=== PATIENT | female | born 1995 | race Caucasian/White ===

== ENCOUNTER 2017-02-21 22:19 | Inpatient (IN) | payer MEDICAID, OTHER ==
[~2017-02-21] VITALS: Ht 165.1 cm; Wt 100.7 kg
[~2017-02-21 22:19] MED LIST: BENZ1TAB10 PO; HALO10 PO; PALI234D IM; PALI3 PO
[2017-02-21 22:52] LABS: BASOPHILS # (AUTO) 0.08 K/uL (0.00-0.20); BASOPHILS % (AUTO) 0.7 % (0.0-2.0); EOSINOPHILS # (AUTO) 0.11 K/uL (0.00-0.70); EOSINOPHILS % (AUTO) 0.96 % (1.0-6.0); HEMATOCRIT 38.1 % (36-46); HEMOGLOBIN 12.7 g/dL (12.0-16.0); LYMPHOCYTES # (AUTO) 2.7 K/uL (1.0-4.8); LYMPHOCYTES % (AUTO) 23.8 % (22.0-44.0); MEAN CORPUSCULAR HGB CONC 33.3 G/dL (31.0-37.0); MEAN CORPUSCULAR VOLUME 78 fL (80-100); MONOCYTES # (AUTO) 0.7 K/uL (0.1-1.0); MONOCYTES % (AUTO) 5.9 % (2.0-9.0); NEUTROPHILS # (AUTO) 7.9 K/uL (1.8-7.7); NEUTROPHILS % (AUTO) 68.7 % (40.0-70.0); PLATELET COUNT (AUTO) 366 K/uL (150-450); RED BLOOD CELL COUNT(AUTO) 4.88 MIL/uL (4.00-5.20); RED CELL DISTRIBUTION WIDTH 13.9 % (11.5-14.5); WHITE BLOOD COUNT (AUTO) 11.5 K/uL (4.5-11.0)
[2017-02-21 23:00] LABS: ANION GAP 10 mmol/L (8-16); CALCIUM, TOTAL 9.1 mg/dL (8.8-10.5); CARBON DIOXIDE 27 mmol/L (22-29); CHLORIDE 105 mmol/L (98-107); CREATININE 1.04 mg/dL (0.60-1.30); GLOMERULAR FILTR. RATE CALC > 60 mL/min (>60); SODIUM SERUM 142 mmol/L (136-145); UREA NITROGEN, BLOOD 11 mg/dL (7-18)
[2017-02-21 23:06] LABS: ALANINE AMINOTRANSFERASE 21 U/L (12-78); ALBUMIN 3.8 g/dL (3.4-5.0); ASPARTATE AMINOTRANSFERASE 12 U/L (15-37); BILIRUBIN,TOTAL 0.3 mg/dL (0.1-1.0)
[2017-02-21] MEDS ORDERED: DiphenhydrAMINE HCL 50 MG/ML VIAL IM ONE (23:30)
[2017-02-21] MEDS ORDERED: LORazepam 2 MG/ML VIAL IM ONE (23:30)
[2017-02-22 01:22] VITALS: BP 126/82
[2017-02-22 03:33] VITALS: BP 135/85
[2017-02-22] MEDS: ZOLPIDEM TARTRATE 10 MG TABLET PO PRN ×2 (03:39→21:06)
[2017-02-22] MEDS ORDERED: PNEUMOCOCCAL VACCINE POLYVALENT 0.5 ML VIAL [PPSV23] IM ONE (04:45)
[2017-02-22] MEDS ORDERED: PETROLATUM,WHITE 71 GM JELLY TP PRN (08:30)
[2017-02-22] MEDS ORDERED: ACETAMINOPHEN 325 MG TABLET PO PRN (08:30)
[2017-02-22] MEDS ORDERED: CloNIDine HCL 0.1 MG TABLET PO PRN (08:30)
[2017-02-22] MEDS ORDERED: ONDANSETRON HCL 4 MG TABLET PO PRN (08:30)
[2017-02-22] MEDS ORDERED: ALBUTEROL SULFATE HFA 90 MCG/PUFF 8 GM INHALER IH PRN (08:30)
[2017-02-22] MEDS ORDERED: MAG HYDROX/AL HYDROX/SIMETH ES 30 ML SUSPENSION UDCUP PO PRN (08:30)
[2017-02-22] MEDS ORDERED: BACITRACIN 28.4 GM OINTMENT TP PRN (08:30)
[2017-02-22] MEDS ORDERED: LOPERAMIDE HCL 2 MG CAPSULE PO PRN (08:30)
[2017-02-22] MEDS: CHOLECALCIFEROL (VIT D3) 1,000 UNITS TABLET PO SCH (09:24)
[2017-02-22] MEDS: BENZTROPINE MESYLATE 1 MG TABLET PO SCH ×2 (09:25→16:09)
[2017-02-22] MEDS: LORazepam 2 MG TABLET PO PRN ×3 (11:57→21:40)
[2017-02-22] MEDS ORDERED: PALIPERIDONE PALMITATE 234 MG/1.5 ML SYRINGE IM SCH (12:00)
[2017-02-22 16:00] VITALS: BP 135/83
[2017-02-22 17:30] VITALS: BP 128/70
[2017-02-22] MEDS: PALIPERIDONE 3 MG ER TABLET PO SCH (20:00)
[2017-02-22] MEDS: HALOPERIDOL 5 MG TABLET PO SCH (21:00)
[2017-02-23 00:02] VITALS: BP 131/74
[2017-02-23] MEDS: CHOLECALCIFEROL (VIT D3) 1,000 UNITS TABLET PO SCH (08:42)
[2017-02-23] MEDS: BENZTROPINE MESYLATE 1 MG TABLET PO SCH ×2 (08:42→16:45)
[2017-02-23 08:46] VITALS: BP 100/58
[2017-02-23 16:08] VITALS: BP 136/81
[2017-02-23] MEDS: LORazepam 2 MG TABLET PO PRN ×2 (16:45→20:54)
[2017-02-23] MEDS: ZOLPIDEM TARTRATE 10 MG TABLET PO PRN (20:31)
[2017-02-23] MEDS: PALIPERIDONE 3 MG ER TABLET PO SCH (20:31)
[2017-02-23] MEDS: HALOPERIDOL 5 MG TABLET PO SCH (20:32)
[2017-02-24] MEDS: BENZOCAINE/MENTHOL LOZENGE MM PRN (04:40)
[2017-02-24 06:25] VITALS: BP 117/62
[2017-02-24] MEDS ORDERED: PALIPERIDONE PALMITATE 234 MG/1.5 ML SYRINGE IM SCH (09:00)
[2017-02-24] MEDS: CHOLECALCIFEROL (VIT D3) 1,000 UNITS TABLET PO SCH (09:52)
[2017-02-24] MEDS: BENZTROPINE MESYLATE 1 MG TABLET PO SCH ×2 (09:52→16:45)
[2017-02-24] MEDS: LORazepam 2 MG TABLET PO PRN ×3 (09:52→21:06)
[2017-02-24 10:05] VITALS: BP 118/64
[2017-02-24 16:15] VITALS: BP 131/85
[2017-02-24] MEDS: ZOLPIDEM TARTRATE 10 MG TABLET PO PRN (20:11)
[2017-02-24] MEDS: PALIPERIDONE 3 MG ER TABLET PO SCH (20:11)
[2017-02-24] MEDS: HALOPERIDOL 5 MG TABLET PO SCH (21:00)
[2017-02-25 01:37] VITALS: BP 111/69
[2017-02-25] MEDS: LORazepam 2 MG TABLET PO PRN ×2 (01:39→16:33)
[2017-02-25] MEDS: CHOLECALCIFEROL (VIT D3) 1,000 UNITS TABLET PO SCH (08:09)
[2017-02-25] MEDS: BENZTROPINE MESYLATE 1 MG TABLET PO SCH ×2 (08:09→16:33)
[2017-02-25] MEDS: BENZOCAINE/MENTHOL LOZENGE MM PRN (08:09)
[2017-02-25 08:15] VITALS: BP 133/66
[2017-02-25 16:04] VITALS: BP 135/77
[2017-02-25] MEDS: ZOLPIDEM TARTRATE 10 MG TABLET PO PRN (20:00)
[2017-02-25] MEDS: PALIPERIDONE 3 MG ER TABLET PO SCH (20:00)
[2017-02-25] MEDS: HALOPERIDOL 5 MG TABLET PO SCH (21:00)
[2017-02-26 02:35] VITALS: BP 128/86
[2017-02-26] MEDS: BENZOCAINE/MENTHOL LOZENGE MM PRN (02:38)
[2017-02-26 08:04] VITALS: BP 132/82
[2017-02-26] MEDS: CHOLECALCIFEROL (VIT D3) 1,000 UNITS TABLET PO SCH (08:13)
[2017-02-26] MEDS: BENZTROPINE MESYLATE 1 MG TABLET PO SCH ×2 (08:13→16:08)
[2017-02-26] MEDS: LORazepam 2 MG TABLET PO PRN ×3 (08:13→19:54)
[2017-02-26] MEDS: HALOPERIDOL 5 MG TABLET PO PRN (08:14)
[2017-02-26 16:08] VITALS: BP 131/82
[2017-02-26] MEDS: PALIPERIDONE 3 MG ER TABLET PO SCH (20:22)
[2017-02-26] MEDS: ZOLPIDEM TARTRATE 10 MG TABLET PO PRN (20:27)
[2017-02-26] MEDS: HALOPERIDOL 5 MG TABLET PO SCH (20:29)
[2017-02-27 02:12] VITALS: BP 114/71
[2017-02-27 08:38] VITALS: BP 122/78
[2017-02-27] MEDS: BENZTROPINE MESYLATE 1 MG TABLET PO SCH ×2 (09:21→16:01)
[2017-02-27] MEDS: CHOLECALCIFEROL (VIT D3) 1,000 UNITS TABLET PO SCH (09:21)
[2017-02-27] MEDS: LORazepam 2 MG TABLET PO PRN ×3 (10:43→20:08)
[2017-02-27 16:36] VITALS: BP 128/90
[2017-02-27] MEDS: PALIPERIDONE 3 MG ER TABLET PO SCH (20:08)
[2017-02-27 20:20] VITALS: BP 113/69
[2017-02-27] MEDS: IBUPROFEN 600 MG TABLET PO PRN (20:20)
[2017-02-27] MEDS: HALOPERIDOL 5 MG TABLET PO SCH (21:00)
[2017-02-27 21:06] VITALS: BP 119/70
[2017-02-28] MEDS: BENZTROPINE MESYLATE 1 MG TABLET PO SCH ×2 (08:15→16:27)
[2017-02-28] MEDS: CHOLECALCIFEROL (VIT D3) 1,000 UNITS TABLET PO SCH (08:15)
[2017-02-28] MEDS: LORazepam 2 MG TABLET PO PRN ×2 (14:25→18:50)
[2017-02-28 16:08] VITALS: BP 115/62
[2017-02-28] MEDS: MAGNESIUM HYDROXIDE SUSPENSION 30 ML UDCUP PO PRN (17:33)
[2017-02-28] MEDS: PALIPERIDONE 3 MG ER TABLET PO SCH (20:05)
[2017-02-28] MEDS: HALOPERIDOL 5 MG TABLET PO SCH (21:00)
[2017-02-28] MEDS: ZOLPIDEM TARTRATE 10 MG TABLET PO PRN (21:01)
[2017-02-28] MEDS: BENZOCAINE/MENTHOL LOZENGE MM PRN (22:16)
[2017-03-01] MEDS: LORazepam 2 MG TABLET PO PRN ×4 (03:00→21:40)
[2017-03-01 03:01] VITALS: BP 126/64
[2017-03-01] MEDS: CHOLECALCIFEROL (VIT D3) 1,000 UNITS TABLET PO SCH (08:21)
[2017-03-01] MEDS: BENZTROPINE MESYLATE 1 MG TABLET PO SCH ×2 (08:21→15:40)
[2017-03-01 16:00] VITALS: BP 137/73
[2017-03-01] MEDS: HALOPERIDOL 5 MG TABLET PO SCH (20:31)
[2017-03-01] MEDS: PALIPERIDONE 3 MG ER TABLET PO SCH (20:32)
[2017-03-01] MEDS: ZOLPIDEM TARTRATE 10 MG TABLET PO PRN (20:32)
[2017-03-02 04:28] VITALS: BP 129/84
[2017-03-02] MEDS: CHOLECALCIFEROL (VIT D3) 1,000 UNITS TABLET PO SCH (08:59)
[2017-03-02] MEDS: BENZTROPINE MESYLATE 1 MG TABLET PO SCH ×2 (08:59→16:27)
[2017-03-02] MEDS: LORazepam 2 MG TABLET PO PRN ×3 (12:00→21:24)
[2017-03-02] MEDS: MAGNESIUM HYDROXIDE SUSPENSION 30 ML UDCUP PO PRN (13:22)
[2017-03-02 16:04] VITALS: BP 144/85
[2017-03-02] MEDS: PALIPERIDONE 3 MG ER TABLET PO SCH (20:18)
[2017-03-02] MEDS: ZOLPIDEM TARTRATE 10 MG TABLET PO PRN (20:50)
[2017-03-02] MEDS: HALOPERIDOL 5 MG TABLET PO SCH (21:00)
[2017-03-03 00:38] VITALS: BP 132/81
[2017-03-03] MEDS: IBUPROFEN 600 MG TABLET PO PRN (00:42)
[2017-03-03 05:50] VITALS: BP 111/83
[2017-03-03] MEDS: LORazepam 2 MG TABLET PO PRN ×4 (05:52→16:44)
[2017-03-03] MEDS: CHOLECALCIFEROL (VIT D3) 1,000 UNITS TABLET PO SCH (08:12)
[2017-03-03] MEDS: BENZTROPINE MESYLATE 1 MG TABLET PO SCH ×2 (08:12→16:44)
[2017-03-03] MEDS: NICOTINE 21 MG/24 HOUR PATCH TD SCH (12:32)
[2017-03-03 16:13] VITALS: BP 124/87
[2017-03-03] MEDS: PALIPERIDONE 3 MG ER TABLET PO SCH (20:05)
[2017-03-03] MEDS: BENZOCAINE/MENTHOL LOZENGE MM PRN (20:21)
[2017-03-03] MEDS: HALOPERIDOL 5 MG TABLET PO SCH (21:00)
[2017-03-03] MEDS: ZOLPIDEM TARTRATE 10 MG TABLET PO PRN (21:04)
[2017-03-04 01:50] VITALS: BP 139/79
[2017-03-04 08:51] VITALS: BP 121/68
[2017-03-04] MEDS: CHOLECALCIFEROL (VIT D3) 1,000 UNITS TABLET PO SCH (09:51)
[2017-03-04] MEDS: BENZTROPINE MESYLATE 1 MG TABLET PO SCH ×2 (09:51→16:03)
[2017-03-04] MEDS: NICOTINE 21 MG/24 HOUR PATCH TD SCH (09:53)
[2017-03-04] MEDS: LORazepam 2 MG TABLET PO PRN ×2 (12:39→16:45)
[2017-03-04 16:00] VITALS: BP 122/79
[2017-03-04] MEDS: HALOPERIDOL 5 MG TABLET PO PRN (16:03)
[2017-03-04] MEDS: MAGNESIUM HYDROXIDE SUSPENSION 30 ML UDCUP PO PRN (16:54)
[2017-03-04] MEDS: HALOPERIDOL 5 MG TABLET PO SCH (20:17)
[2017-03-04] MEDS: PALIPERIDONE 3 MG ER TABLET PO SCH (20:17)
[2017-03-04] MEDS: ZOLPIDEM TARTRATE 10 MG TABLET PO PRN (20:58)
[2017-03-05 04:14] VITALS: BP 123/77
[2017-03-05] MEDS: IBUPROFEN 600 MG TABLET PO PRN (05:13)
[2017-03-05 08:05] VITALS: BP 132/76
[2017-03-05] MEDS: CHOLECALCIFEROL (VIT D3) 1,000 UNITS TABLET PO SCH (08:19)
[2017-03-05] MEDS: BENZTROPINE MESYLATE 1 MG TABLET PO SCH (08:19)
[2017-03-05] MEDS: NICOTINE 21 MG/24 HOUR PATCH TD SCH (08:24)
[2017-03-05] MEDS ORDERED: ALBU8HFA IH (10:38)
[2017-03-05] MEDS ORDERED: VITAD1000 PO (10:38)
[2017-03-23] MEDS ORDERED: PALIPERIDONE PALMITATE 234 MG/1.5 ML SYRINGE IM SCH (09:00)
== END 2017-03-05 15:23 | disposition home or self-care (01) | DRG 750 ==
LOC: EMS 22:20 → B3A 02-22 01:00
PROVIDERS: ADMIT Psychiatry & Neurology Psychiatry; ATTEND Psychiatry & Neurology Psychiatry
DX: F20.0 Paranoid schizophrenia (principal); R45.851 Suicidal ideations; E55.9 Vitamin D deficiency, unspecified; F17.210 Nicotine dependence, cigarettes, uncomplicated; Z71.6 Tobacco abuse counseling; G47.00 Insomnia, unspecified; K59.00 Constipation, unspecified; F17.200 Nicotine dependence, unspecified, uncomplicated; F15.10 Other stimulant abuse, uncomplicated; F12.90 Cannabis use, unspecified, uncomplicated; E66.9 Obesity, unspecified; Z88.8 Allergy status to other drugs, medicaments and biological substances; Z79.899 Other long term (current) drug therapy; Z23 Encounter for immunization; Z68.36 Body mass index [BMI] 36.0-36.9, adult; Z71.51 Drug abuse counseling and surveillance of drug abuser
CPT/HCPCS: 96372; 99285; G0480; J1200; J2060

== ENCOUNTER 2017-07-20 15:30 | Emergency (ER) | payer MEDICAID, OTHER ==
[~2017-07-20] VITALS: Ht 165.1 cm; Wt 102.0 kg
[~2017-07-20 15:30] MED LIST changes: +ALBU8HFA IH; -HALO10 PO; -PALI3 PO; +VITAD1000 PO
[2017-07-20 15:58] LABS: BASOPHILS # (AUTO) 0.06 K/uL (0.00-0.20); BASOPHILS % (AUTO) 0.5 % (0.0-2.0); EOSINOPHILS # (AUTO) 0.06 K/uL (0.00-0.70); EOSINOPHILS % (AUTO) 0.57 % (1.0-6.0); HEMATOCRIT 36.1 % (36-46); HEMOGLOBIN 12.1 g/dL (12.0-16.0); LYMPHOCYTES # (AUTO) 2.2 K/uL (1.0-4.8); LYMPHOCYTES % (AUTO) 19.6 % (22.0-44.0); MEAN CORPUSCULAR HEMOGLOBIN 25.1 pg (26.0-34.0); MEAN CORPUSCULAR HGB CONC 33.7 G/dL (31.0-37.0); MEAN CORPUSCULAR VOLUME 74 fL (80-100); MONOCYTES # (AUTO) 0.5 K/uL (0.1-1.0); MONOCYTES % (AUTO) 4.6 % (2.0-9.0); NEUTROPHILS # (AUTO) 8.4 K/uL (1.8-7.7); NEUTROPHILS % (AUTO) 74.8 % (40.0-70.0); PLATELET COUNT (AUTO) 356 K/uL (150-450); RED BLOOD CELL COUNT(AUTO) 4.84 MIL/uL (4.00-5.20); RED CELL DISTRIBUTION WIDTH 15.3 % (11.5-14.5); WHITE BLOOD COUNT (AUTO) 11.3 K/uL (4.5-11.0)
[2017-07-20 16:21] LABS: RBC MORPHOLOGY COMMENT NORMAL RBC MORPH
[2017-07-20 17:02] LABS: ANION GAP 14 mmol/L (8-16); CALCIUM, TOTAL 9.8 mg/dL (8.8-10.5); CARBON DIOXIDE 25 mmol/L (22-29); CHLORIDE 102 mmol/L (98-107); CREATININE 0.75 mg/dL (0.60-1.30); GLOMERULAR FILTR. RATE CALC > 60 mL/min (>60); POTASSIUM 3.7 mmol/L (3.5-5.1); SODIUM SERUM 141 mmol/L (136-145); UREA NITROGEN, BLOOD 9 mg/dL (7-18)
[2017-07-20 17:10] LABS: ALANINE AMINOTRANSFERASE 34 U/L (12-78); ALBUMIN 3.9 g/dL (3.4-5.0); ASPARTATE AMINOTRANSFERASE 25 U/L (15-37); BILIRUBIN,TOTAL 0.5 mg/dL (0.1-1.0); TOTAL PROTEIN, SERUM 8.3 g/dL (6.4-8.2)
[2017-07-20 17:59] VITALS: BP 119/81
[2017-07-20] MEDS ORDERED: LORazepam 2 MG TABLET PO ONE (18:00)
== END 2017-07-20 18:46 | disposition home or self-care (01) ==
LOC: EMS 15:34
DX: F41.9 Anxiety disorder, unspecified (principal); F20.9 Schizophrenia, unspecified; F17.210 Nicotine dependence, cigarettes, uncomplicated; F12.10 Cannabis abuse, uncomplicated; B19.20 Unspecified viral hepatitis C without hepatic coma
CPT/HCPCS: 36415; 80053; 80307; 85025; 99284; G0480

== ENCOUNTER 2017-12-16 21:21 | Emergency (ER) | payer OTHER ==
[~2017-12-16] VITALS: Ht 170.2 cm; Wt 118.2 kg
[2017-12-16 22:02] LABS: BASOPHILS % (AUTO) 0.3 % (0.0-2.0); EOSINOPHILS % (AUTO) 0.6 % (1.0-6.0); HEMATOCRIT 38.9 % (36-46); LYMPHOCYTES # (AUTO) 2.5 K/uL (1.0-4.8); LYMPHOCYTES % (AUTO) 19.7 % (22.0-44.0); MEAN CORPUSCULAR HGB CONC 33.4 G/dL (31.0-37.0); MEAN CORPUSCULAR VOLUME 75 fL (80-100); MONOCYTES # (AUTO) 0.6 K/uL (0.1-1.0); MONOCYTES % (AUTO) 4.4 % (2.0-9.0); NEUTROPHILS # (AUTO) 9.6 K/uL (1.8-7.7); PLATELET COUNT (AUTO) 413 K/uL (150-450); RED BLOOD CELL COUNT(AUTO) 5.21 MIL/uL (4.00-5.20); RED CELL DISTRIBUTION WIDTH 15.5 % (11.5-14.5)
[2017-12-16 22:21] LABS: ANION GAP 8 mmol/L (8-16); CALCIUM, TOTAL 9.9 mg/dL (8.8-10.5); CARBON DIOXIDE 28 mmol/L (22-29); CHLORIDE 99 mmol/L (98-107); CREATININE 1.09 mg/dL (0.60-1.30); GLOMERULAR FILTR. RATE CALC > 60 mL/min (>60); GLUCOSE,RANDOM 111 mg/dL (70-110); POTASSIUM 3.6 mmol/L (3.5-5.1); SODIUM SERUM 135 mmol/L (136-145); UREA NITROGEN, BLOOD 10 mg/dL (7-18)
[2017-12-16 22:27] LABS: ALANINE AMINOTRANSFERASE 53 U/L (12-78); ALBUMIN 4.1 g/dL (3.4-5.0); ALKALINE PHOSPHATASE 129 U/L (46-116); ASPARTATE AMINOTRANSFERASE 29 U/L (15-37); BILIRUBIN,TOTAL 0.7 mg/dL (0.1-1.0); TOTAL PROTEIN, SERUM 8.7 g/dL (6.4-8.2)
[2017-12-17] MEDS ORDERED: LORazepam 2 MG/ML VIAL IM ONE (00:30)
[2017-12-17] MEDS ORDERED: DiphenhydrAMINE HCL 50 MG/ML VIAL IM ONE (00:30)
[2017-12-17 02:08] VITALS: BP 131/87
== END 2017-12-17 02:11 | disposition home or self-care (01) ==
LOC: EMS 21:37
DX: F41.9 Anxiety disorder, unspecified (principal); F20.0 Paranoid schizophrenia; R44.0 Auditory hallucinations; F12.90 Cannabis use, unspecified, uncomplicated; F15.90 Other stimulant use, unspecified, uncomplicated; F17.210 Nicotine dependence, cigarettes, uncomplicated; Z88.8 Allergy status to other drugs, medicaments and biological substances
CPT/HCPCS: 36415; 80053; 84703; 85025; 96372; 99284; 99406; G0480; J1200; J2060

== ENCOUNTER 2018-07-20 01:44 | Emergency (ER) | payer OTHER ==
[~2018-07-20] VITALS: Ht 170.2 cm; Wt 95.5 kg
[2018-07-20 02:55] LABS: AMPHET/METH SCREEN,URINE NEGATIVE (NEGATIVE); BARBITURATE SCREEN, URINE NEGATIVE (NEGATIVE); BENZODIAZEPINES SCREEN,URINE NEGATIVE (NEGATIVE); CANNABINOID SCREEN,URINE NEGATIVE (NEGATIVE); COCAINE SCREEN,URINE NEGATIVE (NEGATIVE); METHADONE SCREEN, URINE NEGATIVE (NEGATIVE); OPIATE SCREEN,URINE NEGATIVE (NEGATIVE)
[2018-07-20 02:57] LABS: PHENCYCLIDINE SCREEN,URINE NEGATIVE (NEGATIVE)
[2018-07-20 03:12] LABS: BASOPHILS % (AUTO) 0.8 % (0.0-2.0); EOSINOPHILS % (AUTO) 0.8 % (1.0-6.0); HEMATOCRIT 38.7 % (36-46); HEMOGLOBIN 12.7 g/dL (12.0-16.0); LYMPHOCYTES # (AUTO) 2.3 K/uL (1.0-4.8); LYMPHOCYTES % (AUTO) 18.4 % (22.0-44.0); MEAN CORPUSCULAR HEMOGLOBIN 25.1 pg (26.0-34.0); MEAN CORPUSCULAR HGB CONC 32.7 G/dL (31.0-37.0); MEAN CORPUSCULAR VOLUME 77 fL (80-100); MONOCYTES # (AUTO) 0.6 K/uL (0.1-1.0); MONOCYTES % (AUTO) 5.1 % (2.0-9.0); NEUTROPHILS # (AUTO) 9.6 K/uL (1.8-7.7); NEUTROPHILS % (AUTO) 74.9 % (40.0-70.0); PLATELET COUNT (AUTO) 380 K/uL (150-450); RED BLOOD CELL COUNT(AUTO) 5.04 MIL/uL (4.00-5.20); RED CELL DISTRIBUTION WIDTH 15.2 % (11.5-14.5)
[2018-07-20 03:22] LABS: ANION GAP 12 mmol/L (8-16); CALCIUM, TOTAL 9.4 mg/dL (8.8-10.5); CARBON DIOXIDE 23 mmol/L (22-29); CHLORIDE 103 mmol/L (98-107); CREATININE 0.82 mg/dL (0.60-1.30); GLOMERULAR FILTR. RATE CALC > 60 mL/min (>60); GLUCOSE,RANDOM 126 mg/dL (70-110); POTASSIUM 3.5 mmol/L (3.5-5.1); SODIUM SERUM 138 mmol/L (136-145); UREA NITROGEN, BLOOD 7 mg/dL (7-18)
[2018-07-20 03:27] LABS: ALANINE AMINOTRANSFERASE 35 U/L (12-78); ALBUMIN 3.8 g/dL (3.4-5.0); ALKALINE PHOSPHATASE 103 U/L (46-116); ASPARTATE AMINOTRANSFERASE 15 U/L (15-37); BILIRUBIN,TOTAL 0.5 mg/dL (0.1-1.0); TOTAL PROTEIN, SERUM 8.2 g/dL (6.4-8.2)
[2018-07-20 04:40] VITALS: BP 121/73
== END 2018-07-20 06:04 | disposition home or self-care (01) ==
LOC: EMS 01:45
DX: F20.9 Schizophrenia, unspecified (principal); F32.9 Major depressive disorder, single episode, unspecified; F17.210 Nicotine dependence, cigarettes, uncomplicated; F12.90 Cannabis use, unspecified, uncomplicated; F15.90 Other stimulant use, unspecified, uncomplicated; Z88.8 Allergy status to other drugs, medicaments and biological substances; Z79.899 Other long term (current) drug therapy; Z86.19 Personal history of other infectious and parasitic diseases
CPT/HCPCS: 36415; 80053; 80307; 84703; 85025; 99284; G0480

== ENCOUNTER 2018-11-08 15:51 | Inpatient (IN) | payer MEDICAID, OTHER ==
[~2018-11-08] VITALS: Ht 167.6 cm; Wt 109.8 kg
[2018-11-08 18:44] LABS: APPEARANCE,URINE TURBID (CLEAR); GLUCOSE, URINE (UA) NEGATIVE (NEGATIVE); KETONES,URINE 40 mg/dL (NEGATIVE); LEUKOCYTE ESTERASE ,URINE LARGE (NEGATIVE); NITRATE,URINE NEGATIVE (NEGATIVE); OCCULT BLOOD,URINE SMALL (NEGATIVE); PH,URINE 5.5 (5.0-8.0); PROTEIN,URINE POS 1+ (NEGATIVE); UROBILINOGEN,URINE 0.2 mg/dL (<=1.0)
[2018-11-08 18:46] LABS: BILIRUBIN,URINE PRELIM. POSITIVE (NEGATIVE)
[2018-11-08 18:54] LABS: AMPHET/METH SCREEN,URINE NEGATIVE (NEGATIVE); BARBITURATE SCREEN, URINE NEGATIVE (NEGATIVE); BENZODIAZEPINES SCREEN,URINE NEGATIVE (NEGATIVE); CANNABINOID SCREEN,URINE NEGATIVE (NEGATIVE); COCAINE SCREEN,URINE NEGATIVE (NEGATIVE); METHADONE SCREEN, URINE NEGATIVE (NEGATIVE); OPIATE SCREEN,URINE NEGATIVE (NEGATIVE)
[2018-11-08 19:00] LABS: PHENCYCLIDINE SCREEN,URINE NEGATIVE (NEGATIVE)
[2018-11-08 19:07] LABS: BACTERIA,URINE Few /HPF (None Seen); SQUAMOUS EPITHELIAL CELL,UR Many /LPF (None Seen)
[2018-11-08 19:08] LABS: CALCIUM OXALATE CRYSTALS,UR Few /LPF (None Seen)
[2018-11-08 20:38] LABS: BASOPHILS % (AUTO) 0.7 % (0.0-2.0); EOSINOPHILS % (AUTO) 0.2 % (1.0-6.0); HEMATOCRIT 42.1 % (36-46); LYMPHOCYTES # (AUTO) 2.5 K/uL (1.0-4.8); LYMPHOCYTES % (AUTO) 18.8 % (22.0-44.0); MEAN CORPUSCULAR HEMOGLOBIN 25.7 pg (26.0-34.0); MEAN CORPUSCULAR HGB CONC 33.2 G/dL (31.0-37.0); MEAN CORPUSCULAR VOLUME 77 fL (80-100); MONOCYTES # (AUTO) 0.8 K/uL (0.1-1.0); NEUTROPHILS # (AUTO) 9.8 K/uL (1.8-7.7); NEUTROPHILS % (AUTO) 74.3 % (40.0-70.0); PLATELET COUNT (AUTO) 475 K/uL (150-450); RED BLOOD CELL COUNT(AUTO) 5.44 MIL/uL (4.00-5.20); RED CELL DISTRIBUTION WIDTH 15.1 % (11.5-14.5)
[2018-11-08 20:50] LABS: ANION GAP 12 mmol/L (8-16); CALCIUM, TOTAL 9.4 mg/dL (8.8-10.5); CARBON DIOXIDE 26 mmol/L (22-29); CHLORIDE 102 mmol/L (98-107); CREATININE 0.82 mg/dL (0.60-1.30); GLOMERULAR FILTR. RATE CALC > 60 mL/min (>60); GLUCOSE,RANDOM 89 mg/dL (70-110); POTASSIUM 3.7 mmol/L (3.5-5.1); SODIUM SERUM 140 mmol/L (136-145); UREA NITROGEN, BLOOD 8 mg/dL (7-18)
[2018-11-08 21:05] LABS: ALANINE AMINOTRANSFERASE 36 U/L (12-78); ALBUMIN 4.4 g/dL (3.4-5.0); ALKALINE PHOSPHATASE 104 U/L (46-116); ASPARTATE AMINOTRANSFERASE 21 U/L (15-37); CHOL/HDL RATIO 4.9 (3.9-5.7); CHOLESTEROL 185 mg/dL (131-200); FREE T4 (FREE THYROXINE) 1.24 ng/dL (0.76-1.46); HCG,QUANTITATIVE < 1 mIU/mL (0-6); HDL CHOLESTEROL 38 mg/dL (40-60); LDL CHOL (CALC.) 128 mg/dL (0-130); THYROID STIMULATING HORMONE 0.96 uIU/mL (0.36-3.74); TOTAL PROTEIN, SERUM 8.6 g/dL (6.4-8.2); TRIGLYCERIDES 97 mg/dL (15-150)
[2018-11-08] MEDS ORDERED: MAGNESIUM HYDROXIDE SUSPENSION 30 ML UDCUP PO PRN (22:15)
[2018-11-08] MEDS ORDERED: NICOTINE 14 MG/24 HOUR PATCH TD PRN (22:15)
[2018-11-08] MEDS ORDERED: CloNIDine HCL 0.1 MG TABLET PO PRN (22:15)
[2018-11-08] MEDS ORDERED: ALBUTEROL SULFATE HFA 90 MCG/PUFF 8 GM INHALER IH PRN (22:15)
[2018-11-08] MEDS ORDERED: GuaiFENesin/D-METHORPHAN [SUGAR-FREE] 200-20MG/10 ML SYRUP UDCUP PO PRN (22:15)
[2018-11-08] MEDS ORDERED: MAG HYDROX/AL HYDROX/SIMETH ES 30 ML SUSPENSION UDCUP PO PRN (22:15)
[2018-11-08] MEDS ORDERED: LOPERAMIDE HCL 2 MG CAPSULE PO PRN (22:15)
[2018-11-08] MEDS ORDERED: PETROLATUM,WHITE 71 GM JELLY TP PRN (22:15)
[2018-11-08] MEDS ORDERED: DOCUSATE SODIUM 100 MG CAPSULE PO PRN (22:15)
[2018-11-08] MEDS ORDERED: ACETAMINOPHEN 325 MG TABLET PO PRN (22:15)
[2018-11-09 06:41] LABS: BASOPHILS % (AUTO) 0.9 % (0.0-2.0); EOSINOPHILS % (AUTO) 0.6 % (1.0-6.0); HEMATOCRIT 40.6 % (36-46); HEMOGLOBIN 13.6 g/dL (12.0-16.0); LYMPHOCYTES # (AUTO) 2.4 K/uL (1.0-4.8); LYMPHOCYTES % (AUTO) 22.8 % (22.0-44.0); MEAN CORPUSCULAR HEMOGLOBIN 25.9 pg (26.0-34.0); MEAN CORPUSCULAR HGB CONC 33.5 G/dL (31.0-37.0); MEAN CORPUSCULAR VOLUME 77 fL (80-100); MONOCYTES # (AUTO) 0.8 K/uL (0.1-1.0); MONOCYTES % (AUTO) 7.9 % (2.0-9.0); NEUTROPHILS # (AUTO) 7.3 K/uL (1.8-7.7); NEUTROPHILS % (AUTO) 67.8 % (40.0-70.0); PLATELET COUNT (AUTO) 413 K/uL (150-450); RED BLOOD CELL COUNT(AUTO) 5.25 MIL/uL (4.00-5.20)
[2018-11-09 07:04] LABS: HEMOGLOBIN A1C 5.8 % (4.5-6.2)
[2018-11-09 07:34] LABS: ALANINE AMINOTRANSFERASE 31 U/L (12-78); ALKALINE PHOSPHATASE 100 U/L (46-116); ANION GAP 8 mmol/L (8-16); ASPARTATE AMINOTRANSFERASE 22 U/L (15-37); BILIRUBIN,TOTAL 1.1 mg/dL (0.1-1.0); CALCIUM, TOTAL 9.4 mg/dL (8.8-10.5); CARBON DIOXIDE 30 mmol/L (22-29); CHLORIDE 103 mmol/L (98-107); CHOL/HDL RATIO 5.2 (3.9-5.7); CHOLESTEROL 177 mg/dL (131-200); CREATININE 0.82 mg/dL (0.60-1.30); GLOMERULAR FILTR. RATE CALC > 60 mL/min (>60); GLUCOSE,RANDOM 89 mg/dL (70-110); HDL CHOLESTEROL 34 mg/dL (40-60); LDL CHOL (CALC.) 125 mg/dL (0-130); SODIUM SERUM 141 mmol/L (136-145); THYROID STIMULATING HORMONE 1.25 uIU/mL (0.36-3.74); TOTAL PROTEIN, SERUM 7.6 g/dL (6.4-8.2); TRIGLYCERIDES 88 mg/dL (15-150); UREA NITROGEN, BLOOD 9 mg/dL (7-18)
[2018-11-09] MEDS: CEPHALEXIN MONOHYDRATE 500 MG CAPSULE PO SCH (17:33)
[2018-11-09] MEDS: LORazepam 2 MG TABLET PO PRN (20:33)
[2018-11-09] MEDS: PALIPERIDONE 6 MG ER TABLET PO SCH (20:33)
[2018-11-10] MEDS: CEPHALEXIN MONOHYDRATE 500 MG CAPSULE PO SCH ×4 (00:11→23:43)
[2018-11-10] MEDS: CHOLECALCIFEROL (VIT D3) 1,000 UNITS TABLET PO SCH (08:33)
[2018-11-10 10:31] VITALS: BP 101/89
[2018-11-10] MEDS: LORazepam 2 MG TABLET PO PRN ×2 (14:45→20:08)
[2018-11-10] MEDS: HALOPERIDOL 5 MG TABLET PO PRN (20:08)
[2018-11-10] MEDS: PALIPERIDONE 6 MG ER TABLET PO SCH (20:25)
[2018-11-10 22:24] VITALS: BP 131/99
[2018-11-11] MEDS: LORazepam 2 MG TABLET PO PRN ×3 (04:29→20:17)
[2018-11-11] MEDS: CHOLECALCIFEROL (VIT D3) 1,000 UNITS TABLET PO SCH (09:39)
[2018-11-11] MEDS: CEPHALEXIN MONOHYDRATE 500 MG CAPSULE PO SCH ×3 (09:42→23:57)
[2018-11-11] MEDS: IBUPROFEN 400 MG TABLET PO PRN (17:12)
[2018-11-11] MEDS: PALIPERIDONE 6 MG ER TABLET PO SCH ×2 (20:18→20:57)
[2018-11-11] MEDS: ZOLPIDEM TARTRATE 10 MG TABLET PO PRN (20:56)
[2018-11-11] MEDS: HALOPERIDOL 5 MG TABLET PO PRN (23:57)
[2018-11-12] MEDS: CHOLECALCIFEROL (VIT D3) 1,000 UNITS TABLET PO SCH (08:51)
[2018-11-12] MEDS: CEPHALEXIN MONOHYDRATE 500 MG CAPSULE PO SCH ×3 (08:51→23:59)
[2018-11-12] MEDS: HALOPERIDOL 5 MG TABLET PO PRN (11:32)
[2018-11-12] MEDS: LORazepam 2 MG TABLET PO PRN ×2 (11:33→23:49)
[2018-11-12] MEDS: PALIPERIDONE 3 MG ER TABLET PO SCH (20:22)
[2018-11-13] MEDS: HALOPERIDOL 5 MG TABLET PO PRN ×3 (03:41→16:41)
[2018-11-13 08:22] VITALS: BP 140/106
[2018-11-13] MEDS: CEPHALEXIN MONOHYDRATE 500 MG CAPSULE PO SCH ×2 (08:33→16:41)
[2018-11-13] MEDS: CHOLECALCIFEROL (VIT D3) 1,000 UNITS TABLET PO SCH (08:33)
[2018-11-13] MEDS: LORazepam 2 MG TABLET PO PRN (16:41)
[2018-11-13] MEDS: PALIPERIDONE 3 MG ER TABLET PO SCH (20:54)
[2018-11-14] MEDS: CEPHALEXIN MONOHYDRATE 500 MG CAPSULE PO SCH ×4 (00:11→23:40)
[2018-11-14 02:43] VITALS: BP 118/72
[2018-11-14] MEDS: HALOPERIDOL 5 MG TABLET PO PRN (02:43)
[2018-11-14] MEDS: LORazepam 2 MG TABLET PO PRN ×2 (02:43→23:43)
[2018-11-14 08:00] VITALS: BP 122/77
[2018-11-14] MEDS: CHOLECALCIFEROL (VIT D3) 1,000 UNITS TABLET PO SCH (09:24)
[2018-11-14] MEDS: PALIPERIDONE 3 MG ER TABLET PO SCH (21:02)
[2018-11-14] MEDS: ZOLPIDEM TARTRATE 10 MG TABLET PO PRN (21:58)
[2018-11-15 00:05] VITALS: BP 141/86
[2018-11-15] MEDS: IBUPROFEN 400 MG TABLET PO PRN ×2 (00:10→09:46)
[2018-11-15] MEDS: CEPHALEXIN MONOHYDRATE 500 MG CAPSULE PO SCH ×2 (07:13→16:41)
[2018-11-15 08:06] VITALS: BP 106/61
[2018-11-15] MEDS: CHOLECALCIFEROL (VIT D3) 1,000 UNITS TABLET PO SCH (09:43)
[2018-11-15] MEDS: LORazepam 2 MG TABLET PO PRN (12:54)
[2018-11-15] MEDS: HALOPERIDOL 5 MG TABLET PO PRN (16:42)
[2018-11-15] MEDS: PALIPERIDONE 3 MG ER TABLET PO SCH (20:00)
[2018-11-15] MEDS: ZOLPIDEM TARTRATE 10 MG TABLET PO PRN (20:00)
[2018-11-15 20:29] VITALS: BP 148/90
[2018-11-16 00:43] VITALS: BP 142/76
[2018-11-16 08:15] VITALS: BP 136/88
[2018-11-16] MEDS: CHOLECALCIFEROL (VIT D3) 1,000 UNITS TABLET PO SCH (08:19)
[2018-11-16] MEDS: LORazepam 2 MG TABLET PO PRN (13:09)
[2018-11-16] MEDS: PALIPERIDONE 3 MG ER TABLET PO SCH (20:14)
[2018-11-16] MEDS: ZOLPIDEM TARTRATE 10 MG TABLET PO PRN (20:15)
[2018-11-17] MEDS: ONDANSETRON HCL 4 MG TABLET PO PRN (00:11)
[2018-11-17] MEDS: HALOPERIDOL 5 MG TABLET PO PRN ×3 (00:11→23:51)
[2018-11-17 00:30] VITALS: BP 120/83
[2018-11-17] MEDS: LORazepam 2 MG TABLET PO PRN ×2 (09:36→20:22)
[2018-11-17] MEDS: CHOLECALCIFEROL (VIT D3) 1,000 UNITS TABLET PO SCH (09:36)
[2018-11-17] MEDS: PALIPERIDONE 3 MG ER TABLET PO SCH (20:22)
[2018-11-18 04:49] VITALS: BP 109/74
[2018-11-18] MEDS: CHOLECALCIFEROL (VIT D3) 1,000 UNITS TABLET PO SCH (09:00)
[2018-11-18] MEDS: IBUPROFEN 400 MG TABLET PO PRN (14:16)
[2018-11-18 16:42] VITALS: BP 118/78
[2018-11-18] MEDS: HALOPERIDOL 5 MG TABLET PO PRN (18:11)
[2018-11-18] MEDS: LORazepam 2 MG TABLET PO PRN (18:11)
[2018-11-18] MEDS: PALIPERIDONE 3 MG ER TABLET PO SCH (20:55)
[2018-11-19] MEDS: ONDANSETRON HCL 4 MG TABLET PO PRN (02:01)
[2018-11-19 03:47] VITALS: BP 128/84
[2018-11-19] MEDS: CHOLECALCIFEROL (VIT D3) 1,000 UNITS TABLET PO SCH (09:02)
[2018-11-19] MEDS: LORazepam 2 MG TABLET PO PRN (15:51)
[2018-11-19 17:16] VITALS: BP 129/79
[2018-11-19] MEDS: PALIPERIDONE 3 MG ER TABLET PO SCH (20:42)
[2018-11-20] MEDS: LORazepam 2 MG TABLET PO PRN (00:01)
[2018-11-20 00:45] VITALS: BP 128/89
[2018-11-20] MEDS: IBUPROFEN 400 MG TABLET PO PRN (00:53)
[2018-11-20 08:00] VITALS: BP 129/79
[2018-11-20] MEDS: CHOLECALCIFEROL (VIT D3) 1,000 UNITS TABLET PO SCH (10:00)
[2018-11-20] MEDS: HALOPERIDOL 5 MG TABLET PO PRN (16:14)
[2018-11-20 20:17] VITALS: BP 136/89
[2018-11-20] MEDS: ZOLPIDEM TARTRATE 10 MG TABLET PO PRN (20:34)
[2018-11-20] MEDS: PALIPERIDONE 3 MG ER TABLET PO SCH (20:34)
[2018-11-21] MEDS: HALOPERIDOL 5 MG TABLET PO PRN ×2 (00:36→16:43)
[2018-11-21] MEDS: LORazepam 2 MG TABLET PO PRN ×2 (00:36→16:43)
[2018-11-21 08:22] VITALS: BP 145/95
[2018-11-21] MEDS: CHOLECALCIFEROL (VIT D3) 1,000 UNITS TABLET PO SCH (09:27)
[2018-11-21 16:27] VITALS: BP 148/86
[2018-11-21] MEDS ORDERED: PALIPERIDONE PALMITATE 234 MG/1.5 ML SYRINGE IM SCH (19:45)
[2018-11-21] MEDS: PALIPERIDONE 3 MG ER TABLET PO SCH (20:52)
[2018-11-21] MEDS: ZOLPIDEM TARTRATE 10 MG TABLET PO PRN (21:37)
[2018-11-22 01:48] VITALS: BP 131/82
[2018-11-22] MEDS: IBUPROFEN 400 MG TABLET PO PRN (01:52)
[2018-11-22 08:00] VITALS: BP 144/88
[2018-11-22] MEDS: CHOLECALCIFEROL (VIT D3) 1,000 UNITS TABLET PO SCH (08:10)
[2018-11-22] MEDS: HALOPERIDOL 5 MG TABLET PO PRN ×2 (08:10→14:35)
[2018-11-22] MEDS: LORazepam 2 MG TABLET PO PRN ×2 (08:10→14:35)
[2018-11-22 18:13] VITALS: BP 129/86
[2018-11-22 18:20] VITALS: BP 125/78
[2018-11-22 19:13] VITALS: BP 132/72
[2018-11-22] MEDS: PALIPERIDONE 3 MG ER TABLET PO SCH (21:06)
[2018-11-23 00:05] VITALS: BP 122/79
[2018-11-23] MEDS: ZOLPIDEM TARTRATE 10 MG TABLET PO PRN (00:12)
[2018-11-23 08:00] VITALS: BP 146/102
[2018-11-23] MEDS: CHOLECALCIFEROL (VIT D3) 1,000 UNITS TABLET PO SCH (08:14)
[2018-11-23] MEDS: HALOPERIDOL 5 MG TABLET PO PRN ×2 (08:38→16:26)
[2018-11-23] MEDS: LORazepam 2 MG TABLET PO PRN ×2 (08:38→16:26)
[2018-11-23] MEDS: PALIPERIDONE 3 MG ER TABLET PO SCH (20:11)
[2018-11-24 00:15] VITALS: BP 137/79
[2018-11-24] MEDS: ZOLPIDEM TARTRATE 10 MG TABLET PO PRN (01:05)
[2018-11-24 01:35] VITALS: BP 128/94
[2018-11-24] MEDS: LORazepam 2 MG TABLET PO PRN (01:41)
[2018-11-24] MEDS: IBUPROFEN 400 MG TABLET PO PRN (01:41)
[2018-11-24] MEDS ORDERED: PALI3 PO (07:43)
[2018-11-24 09:40] VITALS: BP 126/78
[2018-11-24] MEDS: CHOLECALCIFEROL (VIT D3) 1,000 UNITS TABLET PO SCH (10:18)
[2018-11-24 17:17] VITALS: BP 115/76
== END 2018-11-24 18:15 | disposition home or self-care (01) | DRG 750 ==
LOC: EMS 15:52 → 3EI 20:00
PROVIDERS: ADMIT Psychiatry & Neurology Psychiatry; ATTEND Psychiatry & Neurology Psychiatry
DX: F20.0 Paranoid schizophrenia (principal); B19.20 Unspecified viral hepatitis C without hepatic coma; D64.9 Anemia, unspecified; E55.9 Vitamin D deficiency, unspecified; F10.10 Alcohol abuse, uncomplicated; Y90.9 Presence of alcohol in blood, level not specified; F15.10 Other stimulant abuse, uncomplicated; F17.200 Nicotine dependence, unspecified, uncomplicated; J45.909 Unspecified asthma, uncomplicated; N39.0 Urinary tract infection, site not specified; Z71.51 Drug abuse counseling and surveillance of drug abuser
CPT/HCPCS: 83036; 84439; 84443; 87086; G0480; Q0162

== ENCOUNTER 2022-06-22 17:05 | Inpatient (IN) | payer MEDICAID ==
[~2022-06-22] VITALS: Ht 165.1 cm; Wt 245.0 kg
[~2022-06-22 17:05] MED LIST changes: -ALBU8HFA IH; -BENZ1TAB10 PO; +CHOL100018 PO; +PALI3TAB14 PO; -VITAD1000 PO
[2022-06-22] MEDS ORDERED: LORazepam 1 MG TABLET PO ONE (18:45)
[2022-06-22] MEDS ORDERED: DiphenhydrAMINE HCL 25 MG CAPSULE PO ONE (18:45)
[2022-06-22 18:52] LABS: COVID AG,FIA SOURCE NASOPHARYNGEAL
[2022-06-22 19:07] LABS: AMPHET/METH SCREEN,URINE NEGATIVE (NEGATIVE); BARBITURATE SCREEN, URINE NEGATIVE (NEGATIVE); BENZODIAZEPINES SCREEN,URINE NEGATIVE (NEGATIVE); CANNABINOID SCREEN,URINE NEGATIVE (NEGATIVE); COCAINE SCREEN,URINE NEGATIVE (NEGATIVE); METHADONE SCREEN, URINE NEGATIVE (NEGATIVE); OPIATE SCREEN,URINE NEGATIVE (NEGATIVE)
[2022-06-22 19:08] LABS: PHENCYCLIDINE SCREEN,URINE NEGATIVE (NEGATIVE)
[2022-06-22 19:11] LABS: BASOPHILS % (AUTO) 0.6 % (0.0-2.0); EOSINOPHILS % (AUTO) 0.6 % (1.0-6.0); HEMATOCRIT 32.2 % (36-46); LYMPHOCYTES # (AUTO) 2.6 K/uL (1.0-4.8); LYMPHOCYTES % (AUTO) 21.6 % (22.0-44.0); MEAN CORPUSCULAR HEMOGLOBIN 21.1 pg (26.0-34.0); MEAN CORPUSCULAR HGB CONC 31.2 G/dL (31.0-37.0); MEAN CORPUSCULAR VOLUME 68 fL (80-100); MONOCYTES # (AUTO) 0.6 K/uL (0.1-1.0); MONOCYTES % (AUTO) 4.6 % (2.0-9.0); NEUTROPHILS # (AUTO) 8.7 K/uL (1.8-7.7); NEUTROPHILS % (AUTO) 72.6 % (40.0-70.0); PLATELET COUNT (AUTO) 484 K/uL (150-450); RED BLOOD CELL COUNT(AUTO) 4.75 MIL/uL (4.00-5.20); RED CELL DISTRIBUTION WIDTH 17.8 % (11.5-14.5)
[2022-06-22 19:25] LABS: ANION GAP 11 mmol/L (8-16); CALCIUM, TOTAL 9.6 mg/dL (8.8-10.5); CARBON DIOXIDE 27 mmol/L (22-29); CHLORIDE 99 mmol/L (98-107); CREATININE 0.79 mg/dL (0.60-1.30); GLOMERULAR FILTR. RATE CALC > 60 mL/min (>60); GLUCOSE,RANDOM 235 mg/dL (70-110); POTASSIUM 4.1 mmol/L (3.5-5.1); SODIUM SERUM 137 mmol/L (136-145); UREA NITROGEN, BLOOD 9 mg/dL (7-18)
[2022-06-22 19:31] LABS: ALANINE AMINOTRANSFERASE 55 U/L (12-78); ALBUMIN 3.7 g/dL (3.4-5.0); ALKALINE PHOSPHATASE 95 U/L (46-116); ASPARTATE AMINOTRANSFERASE 38 U/L (15-37); BILIRUBIN,TOTAL 0.4 mg/dL (0.1-1.0); TOTAL PROTEIN, SERUM 8.1 g/dL (6.4-8.2)
[2022-06-22] MEDS ORDERED: ONDANSETRON HCL 4 MG TABLET PO ONE (21:00)
[2022-06-22] MEDS ORDERED: METF-1211 PO (22:36)
[2022-06-22] MEDS ORDERED: MetFORMIN HCL 500 MG TABLET PO ONE (23:00)
[2022-06-22 23:30] VITALS: BP 143/100
[2022-06-22] MEDS: ZOLPIDEM TARTRATE 10 MG TABLET PO PRN (23:57)
[2022-06-23 05:34] LABS: APPEARANCE,URINE TURBID (CLEAR); BILIRUBIN,URINE NEGATIVE (NEGATIVE); GLUCOSE, URINE (UA) 70-100 mg/dL (NEGATIVE); KETONES,URINE NEGATIVE (NEGATIVE); LEUKOCYTE ESTERASE ,URINE NEGATIVE (NEGATIVE); NITRATE,URINE NEGATIVE (NEGATIVE); OCCULT BLOOD,URINE NEGATIVE (NEGATIVE); PH,URINE 5.5 (5.0-8.0); PROTEIN,URINE 30-70 mg/dL (NEGATIVE); SPECIFIC GRAVITIY, URINE 1.038 (1.003-1.030); UROBILINOGEN,URINE <=1.0 mg/dL (<=1.0)
[2022-06-23 06:05] LABS: AMORPHOUS SEDIMENT,UR Many /LPF (None Seen); BACTERIA,URINE None Seen /HPF (None Seen); RBC,URINE None Seen /HPF (0-2); SQUAMOUS EPITHELIAL CELL,UR Moderate /LPF (None Seen); WBC,URINE None Seen /HPF (0-5)
[2022-06-23 06:56] VITALS: BP 140/94
[2022-06-23] MEDS ORDERED: MetFORMIN HCL 500 MG ER TABLET PO SCH (07:30)
[2022-06-23 08:00] VITALS: BP 156/96
[2022-06-23] MEDS: LORazepam 2 MG TABLET PO PRN ×2 (08:59→17:10)
[2022-06-23] MEDS ORDERED: LOPERAMIDE HCL 2 MG CAPSULE PO PRN (14:00)
[2022-06-23] MEDS ORDERED: PETROLATUM,WHITE 28 GM JELLY TP PRN (14:00)
[2022-06-23] MEDS ORDERED: MAGNESIUM HYDROXIDE SUSPENSION 30 ML UDCUP PO PRN (14:00)
[2022-06-23] MEDS ORDERED: MAG HYDROX/AL HYDROX/SIMETH ES 30 ML SUSPENSION UDCUP PO PRN (14:00)
[2022-06-23] MEDS ORDERED: BENZOCAINE/MENTHOL LOZENGE PO PRN (14:00)
[2022-06-23] MEDS ORDERED: GLUCAGON,HUMAN RECOMBINANT 1 MG VIAL IM PRN (14:00)
[2022-06-23] MEDS ORDERED: BACITRACIN 28 GM OINTMENT TP PRN (14:00)
[2022-06-23] MEDS ORDERED: DOCUSATE SODIUM 100 MG CAPSULE PO PRN (14:00)
[2022-06-23] MEDS ORDERED: ACETAMINOPHEN 325 MG TABLET PO PRN (14:00)
[2022-06-23] MEDS ORDERED: ONDANSETRON HCL 4 MG TABLET PO PRN (14:00)
[2022-06-23] MEDS ORDERED: ALBUTEROL SULFATE HFA 90 MCG/PUFF 8 GM INHALER IH PRN (14:00)
[2022-06-23] MEDS ORDERED: CloNIDine HCL 0.1 MG TABLET PO PRN (14:00)
[2022-06-23] MEDS ORDERED: OMEPRAZOLE 20 MG CAPSULE PO PRN (14:00)
[2022-06-23] MEDS: IBUPROFEN 600 MG TABLET PO PRN (16:08)
[2022-06-23 16:09] VITALS: BP 147/88
[2022-06-23] MEDS: MetFORMIN HCL 500 MG ER TABLET PO SCH (16:09)
[2022-06-23 16:36] LABS: GLUCOMETER DEV NAME(LOC) 3E.I 2; GLUCOSE,POINT OF CARE 191 MG/DL (70-110)
[2022-06-23] MEDS: HALOPERIDOL 5 MG TABLET PO PRN ×2 (17:10→21:04)
[2022-06-23] MEDS: INSULIN LISPRO 100 UNITS/ML SQ PRN ×2 (17:24→22:05)
[2022-06-23] MEDS: ZOLPIDEM TARTRATE 10 MG TABLET PO PRN (20:13)
[2022-06-23 20:27] LABS: GLUCOMETER DEV NAME(LOC) 3E.I 2; GLUCOSE,POINT OF CARE 193 MG/DL (70-110)
[2022-06-24 02:00] VITALS: BP 138/78
[2022-06-24] MEDS: HALOPERIDOL 5 MG TABLET PO PRN ×2 (02:06→20:08)
[2022-06-24 06:16] LABS: GLUCOMETER DEV NAME(LOC) 3E.I 2; GLUCOSE,POINT OF CARE 191 MG/DL (70-110)
[2022-06-24] MEDS: MetFORMIN HCL 500 MG ER TABLET PO SCH ×2 (06:53→16:37)
[2022-06-24] MEDS: INSULIN LISPRO 100 UNITS/ML SQ PRN ×4 (06:54→21:05)
[2022-06-24 07:59] LABS: CHOL/HDL RATIO 5.3 (3.9-5.7); THYROID STIMULATING HORMONE 1.07 uIU/mL (0.36-3.74)
[2022-06-24 08:00] VITALS: BP 147/96
[2022-06-24] MEDS: LORazepam 2 MG TABLET PO PRN ×3 (09:05→20:08)
[2022-06-24 11:51] LABS: GLUCOMETER DEV NAME(LOC) 3EX.2; GLUCOSE,POINT OF CARE 162 MG/DL (70-110)
[2022-06-24] MEDS: IBUPROFEN 600 MG TABLET PO PRN (14:58)
[2022-06-24 14:59] VITALS: BP 148/94
[2022-06-24 16:00] VITALS: BP 158/97
[2022-06-24 16:31] LABS: GLUCOMETER DEV NAME(LOC) 3E.I 2; GLUCOSE,POINT OF CARE 166 MG/DL (70-110)
[2022-06-24 18:36] VITALS: BP 148/97
[2022-06-24 20:08] VITALS: BP 138/78
[2022-06-24 20:26] LABS: GLUCOMETER DEV NAME(LOC) 3E.I 2; GLUCOSE,POINT OF CARE 203 MG/DL (70-110)
[2022-06-25] MEDS: ZOLPIDEM TARTRATE 10 MG TABLET PO PRN ×2 (01:04→20:53)
[2022-06-25 01:09] VITALS: BP 117/80
[2022-06-25 06:11] LABS: GLUCOMETER DEV NAME(LOC) 3E.I 2; GLUCOSE,POINT OF CARE 175 MG/DL (70-110)
[2022-06-25] MEDS: MetFORMIN HCL 500 MG ER TABLET PO SCH ×2 (06:48→17:40)
[2022-06-25] MEDS: INSULIN LISPRO 100 UNITS/ML SQ PRN ×4 (06:50→20:43)
[2022-06-25 08:12] VITALS: BP 154/82
[2022-06-25] MEDS ORDERED: RisperiDONE MICROSPHERES 50 MG/2 ML SYRINGE IM SCH (09:00)
[2022-06-25 11:46] LABS: GLUCOMETER DEV NAME(LOC) 3E.I 2; GLUCOSE,POINT OF CARE 158 MG/DL (70-110)
[2022-06-25] MEDS: LORazepam 2 MG TABLET PO PRN (12:45)
[2022-06-25] MEDS: HALOPERIDOL 5 MG TABLET PO PRN (12:45)
[2022-06-25 15:38] VITALS: BP 128/84
[2022-06-25] MEDS: IBUPROFEN 600 MG TABLET PO PRN (15:38)
[2022-06-25 16:10] LABS: GLUCOMETER DEV NAME(LOC) 3E.I 2; GLUCOSE,POINT OF CARE 157 MG/DL (70-110)
[2022-06-25 16:11] VITALS: BP 130/90
[2022-06-25 20:45] VITALS: BP 126/89
[2022-06-25 20:51] LABS: GLUCOMETER DEV NAME(LOC) 3E.I 2; GLUCOSE,POINT OF CARE 173 MG/DL (70-110)
[2022-06-26] MEDS: LORazepam 2 MG TABLET PO PRN ×3 (02:04→16:50)
[2022-06-26 05:51] LABS: GLUCOMETER DEV NAME(LOC) 3E.I 2; GLUCOSE,POINT OF CARE 154 MG/DL (70-110)
[2022-06-26] MEDS: MetFORMIN HCL 500 MG ER TABLET PO SCH ×2 (07:04→17:25)
[2022-06-26] MEDS: INSULIN LISPRO 100 UNITS/ML SQ PRN ×4 (07:06→20:07)
[2022-06-26] MEDS: HALOPERIDOL 5 MG TABLET PO PRN ×2 (08:47→20:59)
[2022-06-26 09:36] VITALS: BP 126/84
[2022-06-26 11:26] LABS: GLUCOMETER DEV NAME(LOC) 3E.I 2; GLUCOSE,POINT OF CARE 140 MG/DL (70-110)
[2022-06-26] MEDS ORDERED: CHOL25TA4 PO (12:32)
[2022-06-26 16:26] VITALS: BP 144/99
[2022-06-26 17:01] LABS: GLUCOMETER DEV NAME(LOC) 3E.I 2; GLUCOSE,POINT OF CARE 135 MG/DL (70-110)
[2022-06-26] MEDS: ZOLPIDEM TARTRATE 10 MG TABLET PO PRN (20:03)
[2022-06-26 20:11] LABS: GLUCOMETER DEV NAME(LOC) 3E.I 2; GLUCOSE,POINT OF CARE 201 MG/DL (70-110)
[2022-06-27] MEDS: MetFORMIN HCL 500 MG ER TABLET PO SCH (07:03)
[2022-06-27] MEDS: INSULIN LISPRO 100 UNITS/ML SQ PRN ×2 (07:05→11:46)
[2022-06-27 08:58] LABS: GLUCOMETER DEV NAME(LOC) 3E.I 2; GLUCOSE,POINT OF CARE 164 MG/DL (70-110)
[2022-06-27 09:00] VITALS: BP 129/77
[2022-06-27] MEDS ORDERED: METF-1211 PO (09:50)
[2022-06-27 11:21] LABS: GLUCOMETER DEV NAME(LOC) 3EX.2; GLUCOSE,POINT OF CARE 126 MG/DL (70-110)
== END 2022-06-27 13:30 | disposition home or self-care (01) | DRG 750 ==
LOC: EMS 17:06 → 3EI 21:48
PROVIDERS: ADMIT Psychiatry & Neurology Psychiatry; ATTEND Psychiatry & Neurology Psychiatry
DX: F20.0 Paranoid schizophrenia (principal); R45.851 Suicidal ideations; R45.850 Homicidal ideations; Z68.45 Body mass index [BMI] 70 or greater, adult; D72.829 Elevated white blood cell count, unspecified; E11.65 Type 2 diabetes mellitus with hyperglycemia; E55.9 Vitamin D deficiency, unspecified; E66.9 Obesity, unspecified; Z20.822 Contact with and (suspected) exposure to COVID-19; G47.00 Insomnia, unspecified; Z82.49 Family history of ischemic heart disease and other diseases of the circulatory system; Z88.8 Allergy status to other drugs, medicaments and biological substances; Z72.0 Tobacco use; Z71.6 Tobacco abuse counseling; Z72.89 Other problems related to lifestyle
CPT/HCPCS: 80053; 80061; 81001; 81003; 82962; 83036; 84443; 84703; 85025; 99285; G0480; J2794; J3535; Q0162

== ENCOUNTER 2025-05-08 14:00 | Inpatient (IN) | payer MEDICARE, MEDICAID ==
[~2025-05-08] VITALS: Ht 170.2 cm; Wt 107.0 kg
[~2025-05-08 14:00] MED LIST changes: -CHOL100018 PO; +METF-1211 PO; -PALI234D IM; -PALI3TAB14 PO
[2025-05-08 15:32] LABS: COVID AG,FIA SOURCE NASAL SWAB
[2025-05-08 15:34] LABS: APPEARANCE,URINE HAZY (CLEAR); GLUCOSE, URINE (UA) NEGATIVE (NEGATIVE); LEUKOCYTE ESTERASE ,URINE SMALL (NEGATIVE); NITRATE,URINE NEGATIVE (NEGATIVE); OCCULT BLOOD,URINE NEGATIVE (NEGATIVE); SPECIFIC GRAVITIY, URINE 1.016 (1.003-1.030)
[2025-05-08 15:54] LABS: SARS-COV2 (COVID) ANTIGEN,FIA Negative (Negative)
[2025-05-08 16:34] LABS: SQUAMOUS EPITHELIAL CELL,UR Moderate /LPF (None Seen)
[2025-05-08 17:05] LABS: GLUCOMETER DEV NAME(LOC) ERT.7; GLUCOSE,POINT OF CARE 148 MG/DL (70-110)
[2025-05-08] MEDS ORDERED: RISP3TAB77 PO (17:34)
[2025-05-08 17:59] LABS: PLATELET COUNT (AUTO) 392 K/uL (150-450); RED BLOOD CELL COUNT(AUTO) 4.90 MIL/uL (4.00-5.20); RED CELL DISTRIBUTION WIDTH 14.5 % (11.5-14.5); WHITE BLOOD COUNT (AUTO) 15.1 K/uL (4.5-11.0)
[2025-05-08 18:09] LABS: CALCIUM, TOTAL 9.4 mg/dL (8.8-10.5); CREATININE 0.74 mg/dL (0.60-1.30); GLOMERULAR FILTR. RATE CALC > 60 mL/min (>60); GLUCOSE,RANDOM 159 mg/dL (70-110); SODIUM SERUM 136 mmol/L (136-145); UREA NITROGEN, BLOOD 4 mg/dL (7-18)
[2025-05-08] MEDS: ZOLPIDEM TARTRATE 10 MG TABLET PO PRN (22:34)
[2025-05-09] MEDS: NICOTINE 7 MG/24 HOUR PATCH TD ONE (04:38)
[2025-05-09 08:01] LABS: GLUCOMETER DEV NAME(LOC) ERT.7; GLUCOSE,POINT OF CARE 267 MG/DL (70-110)
[2025-05-09 09:10] LABS: PH,URINE DRUG SCREEN 6.0 (5.0-8.0)
[2025-05-09 09:16] LABS: ALCOHOL, URINE DRUG SCREEN NEGATIVE (NEGATIVE); AMPHET/METH SCREEN,URINE NEGATIVE (NEGATIVE); BARBITURATE SCREEN, URINE NEGATIVE (NEGATIVE); CANNABINOID SCREEN,URINE POSITIVE (NEGATIVE); COCAINE SCREEN,URINE NEGATIVE (NEGATIVE); METHADONE SCREEN, URINE NEGATIVE (NEGATIVE)
[2025-05-09] MEDS: BACITRACIN 28 GM OINTMENT TP ONE (11:37)
[2025-05-09 12:20] LABS: GLUCOMETER DEV NAME(LOC) ERT.7; GLUCOSE,POINT OF CARE 169 MG/DL (70-110)
[2025-05-09] MEDS: LORazepam 2 MG/ML VIAL IM ONE (14:25)
[2025-05-10 16:00] VITALS: O2SAT 99
[2025-05-10 17:11] LABS: GLUCOMETER DEV NAME(LOC) ERT.7; GLUCOSE,POINT OF CARE 218 MG/DL (70-110)
[2025-05-10 20:06] LABS: GLUCOMETER DEV NAME(LOC) BV2S.; GLUCOSE,POINT OF CARE 214 MG/DL (70-110)
[2025-05-10 21:26] VITALS: BP 133/86; PULSE 98; RESP 18; TEMP 98.1; O2SAT 99
[2025-05-10] MEDS ORDERED: ALBUTEROL SULFATE HFA 90 MCG/PUFF 8 GM INHALER IH PRN (22:00)
[2025-05-10] MEDS ORDERED: MAG HYDROX/ALUMINUM HYD/SIMETH ES 30 ML SUSPENSION UDCUP PO PRN (22:00)
[2025-05-10] MEDS ORDERED: PETROLATUM,WHITE 28 GM JELLY TP PRN (22:00)
[2025-05-10] MEDS ORDERED: DOCUSATE SODIUM 100 MG CAPSULE PO PRN (22:00)
[2025-05-10] MEDS ORDERED: LOPERAMIDE HCL 2 MG CAPSULE PO PRN (22:00)
[2025-05-11] VITALS (7 sets, daily range): BP systolic 121–136; BP diastolic 81–96; PULSE 98–125; RESP 16–19; TEMP 97.2–97.8; O2SAT 97–99
[2025-05-11 06:51] LABS: GLUCOMETER DEV NAME(LOC) BV2S.; GLUCOSE,POINT OF CARE 169 MG/DL (70-110)
[2025-05-11] MEDS: ACETAMINOPHEN 325 MG TABLET PO PRN (08:21)
[2025-05-11] MEDS ORDERED: GLUCAGON,HUMAN RECOMBINANT 1 MG VIAL IM PRN (08:45)
[2025-05-11] MEDS: NICOTINE POLACRILEX 2 MG LOZENGE PO PRN (10:15)
[2025-05-11 16:26] LABS: GLUCOMETER DEV NAME(LOC) BV2S.; GLUCOSE,POINT OF CARE 204 MG/DL (70-110)
[2025-05-11] MEDS ORDERED: PALIPERIDONE PALMITATE 234 MG/1.5 ML SYRINGE IM ONE (16:45)
[2025-05-11] MEDS: INSULIN LISPRO 100 UNITS/ML SQ PRN (16:48)
[2025-05-11 20:46] LABS: GLUCOMETER DEV NAME(LOC) BV2S.; GLUCOSE,POINT OF CARE 129 MG/DL (70-110)
[2025-05-12] VITALS (10 sets, daily range): BP systolic 125–147; BP diastolic 72–87; PULSE 96–121; RESP 16–19; TEMP 97.5–97.8; O2SAT 97–99
[2025-05-12 02:06] LABS: HEPATITIS C AB (EIA) Reactive (Non Reactive)
[2025-05-12 06:40] LABS: GLUCOMETER DEV NAME(LOC) BV2S.; GLUCOSE,POINT OF CARE 131 MG/DL (70-110)
[2025-05-12] MEDS: PALIPERIDONE PALMITATE 234 MG/1.5 ML SYRINGE IM ONE (09:37)
[2025-05-12 11:15] LABS: GLUCOMETER DEV NAME(LOC) BV2S.; GLUCOSE,POINT OF CARE 169 MG/DL (70-110)
[2025-05-12 16:51] LABS: GLUCOMETER DEV NAME(LOC) BV2S.; GLUCOSE,POINT OF CARE 206 MG/DL (70-110)
[2025-05-12 20:41] LABS: GLUCOMETER DEV NAME(LOC) BV2S.; GLUCOSE,POINT OF CARE 139 MG/DL (70-110)
[2025-05-12] MEDS: MAGNESIUM HYDROXIDE SUSPENSION 30 ML UDCUP PO PRN (21:24)
[2025-05-12] MEDS: IBUPROFEN 600 MG TABLET PO PRN (21:24)
[2025-05-13 05:50] VITALS: BP 130/78; PULSE 110; RESP 17; O2SAT 100
[2025-05-13 06:20] LABS: GLUCOMETER DEV NAME(LOC) BV2S.; GLUCOSE,POINT OF CARE 144 MG/DL (70-110)
[2025-05-13] MEDS: PNEUMOCOCCAL VACCINE POLYVALENT 0.5 ML SYRINGE [PPSV23] IM. ONE (08:08)
[2025-05-13 08:33] VITALS: BP 128/89; PULSE 87; RESP 18; TEMP 97.9; O2SAT 97
[2025-05-13 11:36] LABS: GLUCOMETER DEV NAME(LOC) BV2S.; GLUCOSE,POINT OF CARE 143 MG/DL (70-110)
[2025-05-14 06:20] LABS: GLUCOMETER DEV NAME(LOC) BV2S.; GLUCOSE,POINT OF CARE 140 MG/DL (70-110)
[2025-05-14 07:45] LABS: PLATELET COUNT (AUTO) 357 K/uL (150-450); RBC MORPHOLOGY COMMENT ABNORMAL RBC MORPH; RED BLOOD CELL COUNT(AUTO) 4.74 MIL/uL (4.00-5.20); RED CELL DISTRIBUTION WIDTH 14.2 % (11.5-14.5); WHITE BLOOD COUNT (AUTO) 10.3 K/uL (4.5-11.0)
[2025-05-14 08:31] VITALS: BP 122/80; PULSE 103; RESP 18; TEMP 98.6; O2SAT 97
[2025-05-14 11:28] VITALS: RESP 18
[2025-05-14 11:55] LABS: GLUCOMETER DEV NAME(LOC) BV2S.; GLUCOSE,POINT OF CARE 209 MG/DL (70-110)
[2025-05-14 12:07] LABS: HEPATITIS C RT-PCR,QNT HCV Not Detected IU/mL
[2025-05-14 12:28] VITALS: RESP 18
[2025-05-14 17:35] LABS: GLUCOMETER DEV NAME(LOC) BV2S.; GLUCOSE,POINT OF CARE 171 MG/DL (70-110)
[2025-05-14 20:20] VITALS: BP 125/81; PULSE 88; RESP 17; TEMP 98.1; O2SAT 98
[2025-05-14 21:55] LABS: GLUCOMETER DEV NAME(LOC) BV2S.; GLUCOSE,POINT OF CARE 208 MG/DL (70-110)
[2025-05-15] MEDS: BACITRACIN 28 GM OINTMENT TP PRN (04:10)
[2025-05-15 06:11] LABS: GLUCOMETER DEV NAME(LOC) BV2S.; GLUCOSE,POINT OF CARE 143 MG/DL (70-110)
[2025-05-15] MEDS: ONDANSETRON 4 MG TABLET PO PRN (07:49)
[2025-05-15 08:41] VITALS: BP 136/91; PULSE 104; RESP 18; TEMP 97.5; O2SAT 97
[2025-05-15 11:26] LABS: GLUCOMETER DEV NAME(LOC) BV2S.; GLUCOSE,POINT OF CARE 180 MG/DL (70-110)
[2025-05-15] MEDS: OMEPRAZOLE 20 MG CAPSULE PO PRN (12:36)
[2025-05-15] MEDS: BENZOCAINE/MENTHOL [CEPACOL] LOZENGE PO PRN (12:37)
[2025-05-15 16:50] LABS: GLUCOMETER DEV NAME(LOC) BV2S.; GLUCOSE,POINT OF CARE 182 MG/DL (70-110)
[2025-05-15 17:01] VITALS: RESP 18
[2025-05-15 18:01] VITALS: RESP 18
[2025-05-15 20:56] LABS: GLUCOMETER DEV NAME(LOC) BV2S.; GLUCOSE,POINT OF CARE 119 MG/DL (70-110)
[2025-05-15 21:49] VITALS: BP 120/84; PULSE 99; RESP 18; TEMP 96.8; O2SAT 97
[2025-05-16 07:20] LABS: GLUCOMETER DEV NAME(LOC) BV2S.; GLUCOSE,POINT OF CARE 130 MG/DL (70-110)
[2025-05-16 08:24] VITALS: BP 117/72; PULSE 100; RESP 17; TEMP 99; O2SAT 98
[2025-05-16 08:45] VITALS: RESP 18
[2025-05-16 09:45] VITALS: RESP 18
[2025-05-16 11:35] LABS: GLUCOMETER DEV NAME(LOC) BV2S.; GLUCOSE,POINT OF CARE 203 MG/DL (70-110)
[2025-05-16 16:41] LABS: GLUCOMETER DEV NAME(LOC) BV2S.; GLUCOSE,POINT OF CARE 142 MG/DL (70-110)
[2025-05-16 20:11] VITALS: BP 153/100; PULSE 110; RESP 20; TEMP 97.6; O2SAT 98
[2025-05-16 20:30] LABS: GLUCOMETER DEV NAME(LOC) BV2S.; GLUCOSE,POINT OF CARE 117 MG/DL (70-110)
[2025-05-17] VITALS (8 sets, daily range): BP systolic 113–121; BP diastolic 67–81; PULSE 98–108; RESP 18; TEMP 98.2–98.4; O2SAT 96–100
[2025-05-17 07:20] LABS: GLUCOMETER DEV NAME(LOC) BV2S.; GLUCOSE,POINT OF CARE 135 MG/DL (70-110)
[2025-05-17 10:53] LABS: GLUCOMETER DEV NAME(LOC) BV2S.; GLUCOSE,POINT OF CARE 160 MG/DL (70-110)
[2025-05-17 17:25] LABS: GLUCOMETER DEV NAME(LOC) BV2S.; GLUCOSE,POINT OF CARE 149 MG/DL (70-110)
[2025-05-17 21:16] LABS: GLUCOMETER DEV NAME(LOC) BV2S.; GLUCOSE,POINT OF CARE 118 MG/DL (70-110)
[2025-05-18 06:16] LABS: GLUCOMETER DEV NAME(LOC) BV2S.; GLUCOSE,POINT OF CARE 130 MG/DL (70-110)
[2025-05-18 08:47] VITALS: BP 135/76; PULSE 97; RESP 18; TEMP 97.9; O2SAT 98
[2025-05-18 12:01] LABS: GLUCOMETER DEV NAME(LOC) BV2S.; GLUCOSE,POINT OF CARE 153 MG/DL (70-110)
[2025-06-11] MEDS ORDERED: PALIPERIDONE PALMITATE 234 MG/1.5 ML SYRINGE IM SCH (09:00)
== END 2025-05-18 12:40 | disposition home or self-care (01) | DRG 885 ==
LOC: EMS 14:01 → B2X 05-10 16:35
PROVIDERS: ADMIT Psychiatry & Neurology Psychiatry; ATTEND Psychiatry & Neurology Psychiatry
DX: F20.9 Schizophrenia, unspecified (principal); E11.65 Type 2 diabetes mellitus with hyperglycemia; R45.851 Suicidal ideations; R45.850 Homicidal ideations; B18.2 Chronic viral hepatitis C; D72.829 Elevated white blood cell count, unspecified; E66.9 Obesity, unspecified; M54.50 Low back pain, unspecified; F32.9 Major depressive disorder, single episode, unspecified; E55.9 Vitamin D deficiency, unspecified; F17.210 Nicotine dependence, cigarettes, uncomplicated; F10.90 Alcohol use, unspecified, uncomplicated; G47.00 Insomnia, unspecified; Z20.822 Contact with and (suspected) exposure to COVID-19; Z79.4 Long term (current) use of insulin; Z82.49 Family history of ischemic heart disease and other diseases of the circulatory system; Z68.37 Body mass index [BMI] 37.0-37.9, adult; Z88.8 Allergy status to other drugs, medicaments and biological substances
CPT/HCPCS: 80048; 80307; 81001; 82962; 84703; 85025; 86803; 87340; 87522; 96372; 99291; G0480; J1200; J1630; J2060; Q0162

== ENCOUNTER 2025-05-13 12:43 | Emergency (ER) | payer MEDICARE, OTHER ==
[~2025-05-13] VITALS: Ht 170.2 cm; Wt 109.1 kg
[~2025-05-13 12:43] MED LIST changes: +RISP3TAB77 PO
[2025-05-13 13:17] VITALS: TEMP 98.1
[2025-05-13] MEDS: LORazepam 2 MG TABLET PO ONE (17:10)
[2025-05-13 17:31] LABS: BASOPHILS % (AUTO) 0.8 % (0.0-2.0); EOSINOPHILS % (AUTO) 1.1 % (1.0-6.0); HEMATOCRIT 38.4 % (36-46); HEMOGLOBIN 12.7 g/dL (12.0-16.0); LYMPHOCYTES # (AUTO) 2.4 K/uL (1.0-4.8); LYMPHOCYTES % (AUTO) 22.3 % (22.0-44.0); MEAN CORPUSCULAR VOLUME 76 fL (80-100); MONOCYTES # (AUTO) 0.8 K/uL (0.1-1.0); MONOCYTES % (AUTO) 7.5 % (2.0-9.0); NEUTROPHILS # (AUTO) 7.4 K/uL (1.8-7.7); NEUTROPHILS % (AUTO) 68.3 % (40.0-70.0); PLATELET COUNT (AUTO) 388 K/uL (150-450); RED BLOOD CELL COUNT(AUTO) 5.07 MIL/uL (4.00-5.20); RED CELL DISTRIBUTION WIDTH 14.5 % (11.5-14.5); WHITE BLOOD COUNT (AUTO) 10.8 K/uL (4.5-11.0)
[2025-05-13 17:40] LABS: ANION GAP 6 mmol/L (8-16); CALCIUM, TOTAL 9.3 mg/dL (8.8-10.5); CARBON DIOXIDE 28 mmol/L (22-29); CHLORIDE 103 mmol/L (98-107); CREATININE 0.75 mg/dL (0.60-1.30); GLOMERULAR FILTR. RATE CALC > 60 mL/min (>60); GLUCOSE,RANDOM 161 mg/dL (70-110); POTASSIUM 4.5 mmol/L (3.5-5.1); SODIUM SERUM 137 mmol/L (136-145); UREA NITROGEN, BLOOD 10 mg/dL (7-18)
[2025-05-13 20:28] LABS: APPEARANCE,URINE CLEAR (CLEAR); BILIRUBIN,URINE NEGATIVE (NEGATIVE); COLOR,URINE COLORLESS (YELLOW); GLUCOSE, URINE (UA) NEGATIVE (NEGATIVE); KETONES,URINE NEGATIVE (NEGATIVE); LEUKOCYTE ESTERASE ,URINE NEGATIVE (NEGATIVE); NITRATE,URINE NEGATIVE (NEGATIVE); OCCULT BLOOD,URINE NEGATIVE (NEGATIVE); PROTEIN,URINE NEGATIVE (NEGATIVE); UROBILINOGEN,URINE <=1.0 mg/dL (<=1.0)
[2025-05-13] MEDS ORDERED: haloperidoL LACTATE 5 MG/ML VIAL ONE (21:38)
[2025-05-13] MEDS ORDERED: LORazepam 2 MG/ML VIAL ONE (21:38)
[2025-05-13] MEDS ORDERED: DiphenhydrAMINE HCL 50 MG/ML VIAL ONE (21:39)
[2025-05-13] MEDS: LORazepam 2 MG/ML VIAL IM ONE (21:51)
[2025-05-13] MEDS: haloperidoL LACTATE 5 MG/ML VIAL IM ONE (21:51)
[2025-05-13] MEDS: DiphenhydrAMINE HCL 50 MG/ML VIAL IM ONE (21:52)
[2025-05-14 00:31] VITALS: BP 126/88; PULSE 90; RESP 15; O2SAT 98
== END 2025-05-14 00:55 | disposition admitted as inpatient to this hospital (09) ==
LOC: EMS 12:46
DX: K59.00 Constipation, unspecified (principal); F20.9 Schizophrenia, unspecified; K62.89 Other specified diseases of anus and rectum; E11.9 Type 2 diabetes mellitus without complications; F32.A Depression, unspecified; F12.90 Cannabis use, unspecified, uncomplicated; F17.210 Nicotine dependence, cigarettes, uncomplicated; F15.10 Other stimulant abuse, uncomplicated; Z88.8 Allergy status to other drugs, medicaments and biological substances; Z86.19 Personal history of other infectious and parasitic diseases; Z98.890 Other specified postprocedural states; Z79.899 Other long term (current) drug therapy
CPT/HCPCS: 99285; 80048; 81003; 85025; 36415; 74018; 96372; J1200; J1630; J2060

== ENCOUNTER 2025-07-17 17:21 | Emergency (ER) | payer MEDICARE, MEDICAID ==
[~2025-07-17] VITALS: Ht 170.2 cm; Wt 99.0 kg
[2025-07-17 18:00] VITALS: TEMP 99.1
[2025-07-17 18:14] LABS: PLATELET COUNT (AUTO) 437 K/uL (150-450); RED BLOOD CELL COUNT(AUTO) 4.40 MIL/uL (4.00-5.20); RED CELL DISTRIBUTION WIDTH 15.8 % (11.5-14.5); WHITE BLOOD COUNT (AUTO) 12.9 K/uL (4.5-11.0)
[2025-07-17 18:17] LABS: CALCIUM, TOTAL 9.2 mg/dL (8.8-10.5); CREATININE 0.86 mg/dL (0.60-1.30); GLOMERULAR FILTR. RATE CALC > 60 mL/min (>60); GLUCOSE,RANDOM 166 mg/dL (70-110); SODIUM SERUM 140 mmol/L (136-145); UREA NITROGEN, BLOOD 5 mg/dL (7-18)
[2025-07-17] MEDS ORDERED: METF-1211 PO (18:24)
[2025-07-17] MEDS ORDERED: TRAZ-252 PO (18:24)
[2025-07-17] MEDS ORDERED: RISP3TAB77 PO (18:24)
[2025-07-17 18:28] LABS: RBC MORPHOLOGY COMMENT ABNORMAL RBC MORPH
[2025-07-17 18:51] LABS: COVID AG,FIA SOURCE NASAL SWAB
[2025-07-17] MEDS: LORazepam 2 MG/ML VIAL IM ONE (18:53)
[2025-07-17 19:14] LABS: SARS-COV2 (COVID) ANTIGEN,FIA Negative (Negative)
[2025-07-17] MEDS ORDERED: ZOLPIDEM TARTRATE 10 MG TABLET PO PRN (23:15)
[2025-07-17 23:50] VITALS: BP 121/83; PULSE 93; RESP 19; O2SAT 99
[2025-07-18] MEDS ORDERED: LOPERAMIDE HCL 2 MG CAPSULE PO PRN (05:45)
[2025-07-18] MEDS ORDERED: OMEPRAZOLE 20 MG CAPSULE PO PRN (05:45)
[2025-07-18] MEDS ORDERED: PETROLATUM,WHITE 28 GM JELLY TP PRN (05:45)
[2025-07-18] MEDS ORDERED: ACETAMINOPHEN 325 MG TABLET PO PRN (05:45)
[2025-07-18] MEDS ORDERED: BACITRACIN 28 GM OINTMENT TP PRN (05:45)
[2025-07-18] MEDS ORDERED: MAGNESIUM HYDROXIDE SUSPENSION 30 ML UDCUP PO PRN (05:45)
[2025-07-18] MEDS ORDERED: ONDANSETRON 4 MG TABLET PO PRN (05:45)
[2025-07-18] MEDS ORDERED: DEXTROSE 50%-WATER 25 GM/50 ML SYRINGE IVP PRN (05:45)
[2025-07-18] MEDS ORDERED: MAG HYDROX/ALUMINUM HYD/SIMETH ES 30 ML SUSPENSION UDCUP PO PRN (05:45)
[2025-07-18] MEDS ORDERED: ALBUTEROL SULFATE HFA 90 MCG/PUFF 8 GM INHALER IH PRN (05:45)
[2025-07-18] MEDS ORDERED: DOCUSATE SODIUM 100 MG CAPSULE PO PRN (05:45)
[2025-07-18] MEDS ORDERED: IBUPROFEN 600 MG TABLET PO PRN (05:45)
[2025-07-18] MEDS ORDERED: INSULIN LISPRO 100 UNITS/ML SQ PRN (05:45)
[2025-07-18] MEDS ORDERED: BENZOCAINE/MENTHOL [CEPACOL] LOZENGE PO PRN (05:45)
[2025-07-18] MEDS ORDERED: LORazepam 2 MG/ML VIAL ONE (12:27)
== END 2025-07-18 04:40 | disposition left against medical advice (07) ==
LOC: EMS 17:21 → B3A 07-18 00:05 → UNDOADMIN 07-18 00:05 → EMS 07-18 04:40
DX: F20.0 Paranoid schizophrenia (principal); R45.850 Homicidal ideations; F32.A Depression, unspecified; E11.9 Type 2 diabetes mellitus without complications; F17.210 Nicotine dependence, cigarettes, uncomplicated; F12.90 Cannabis use, unspecified, uncomplicated; F15.90 Other stimulant use, unspecified, uncomplicated; Z88.5 Allergy status to narcotic agent; Z98.890 Other specified postprocedural states; Z79.899 Other long term (current) drug therapy; Z20.822 Contact with and (suspected) exposure to COVID-19
CPT/HCPCS: 99291; 87426; 80048; 84703; 85025; 36415; 96372; G0480; J1200; J1630; J2060

== ENCOUNTER 2025-07-18 04:03 | Inpatient (IN) | payer MEDICARE, MEDICAID ==
[~2025-07-18] VITALS: Ht 177.8 cm; Wt 113.6 kg
[~2025-07-18 04:03] MED LIST changes: +TRAZ-252 PO
[2025-07-18 06:19] LABS: PLATELET COUNT (AUTO) 421 K/uL (150-450); RED BLOOD CELL COUNT(AUTO) 4.27 MIL/uL (4.00-5.20); RED CELL DISTRIBUTION WIDTH 15.7 % (11.5-14.5); WHITE BLOOD COUNT (AUTO) 13.7 K/uL (4.5-11.0)
[2025-07-18 06:29] LABS: CALCIUM, TOTAL 8.6 mg/dL (8.8-10.5); CREATININE 1.08 mg/dL (0.60-1.30); GLOMERULAR FILTR. RATE CALC 60.0 mL/min (>60); GLUCOSE,RANDOM 192.0 mg/dL (70-110); SODIUM SERUM 138.0 mmol/L (136-145); UREA NITROGEN, BLOOD 6.0 mg/dL (7-18)
[2025-07-18 06:50] VITALS: O2SAT 99
[2025-07-18 07:42] LABS: RBC MORPHOLOGY COMMENT ABNORMAL RBC MORPH
[2025-07-18] MEDS: LORazepam 2 MG/ML VIAL IM ONE (10:15)
[2025-07-18 12:40] VITALS: BP 112/75; PULSE 119; RESP 17; TEMP 97.7; O2SAT 99
[2025-07-18] MEDS: ZOLPIDEM TARTRATE 10 MG TABLET PO PRN (21:43)
[2025-07-18 22:07] VITALS: RESP 16
[2025-07-19] MEDS ORDERED: MAG HYDROX/ALUMINUM HYD/SIMETH ES 30 ML SUSPENSION UDCUP PO PRN (06:00)
[2025-07-19] MEDS ORDERED: BENZOCAINE/MENTHOL [CEPACOL] LOZENGE PO PRN (06:00)
[2025-07-19] MEDS ORDERED: OMEPRAZOLE 20 MG CAPSULE PO PRN (06:00)
[2025-07-19] MEDS ORDERED: PETROLATUM,WHITE 28 GM JELLY TP PRN (06:00)
[2025-07-19] MEDS ORDERED: LOPERAMIDE HCL 2 MG CAPSULE PO PRN (06:00)
[2025-07-19] MEDS ORDERED: BACITRACIN 28 GM OINTMENT TP PRN (06:00)
[2025-07-19] MEDS ORDERED: ALBUTEROL SULFATE HFA 90 MCG/PUFF 8 GM INHALER IH PRN (06:00)
[2025-07-19] MEDS ORDERED: ACETAMINOPHEN 325 MG TABLET PO PRN (06:00)
[2025-07-19] MEDS ORDERED: DOCUSATE SODIUM 100 MG CAPSULE PO PRN (06:00)
[2025-07-19] MEDS ORDERED: MAGNESIUM HYDROXIDE SUSPENSION 30 ML UDCUP PO PRN (06:00)
[2025-07-19] MEDS: MetFORMIN HCL 500 MG ER TABLET PO SCH (07:00)
[2025-07-19 08:30] VITALS: BP 121/83; PULSE 100; RESP 18; TEMP 97.5; O2SAT 97
[2025-07-19 08:42] LABS: CHOL/HDL RATIO 5.1 (3.9-5.7); LDL CHOL (CALC.) 89.0 mg/dL (0-130)
[2025-07-19] MEDS: LORazepam 2 MG/ML VIAL IM ONE (18:13)
[2025-07-19 20:51] VITALS: BP 136/82; PULSE 118; RESP 17; TEMP 97; O2SAT 98
[2025-07-20] MEDS ORDERED: GLUCAGON,HUMAN RECOMBINANT 1 MG VIAL IM PRN (08:30)
[2025-07-20 08:50] VITALS: RESP 16
[2025-07-20 11:26] LABS: GLUCOMETER DEV NAME(LOC) BV3N.2; GLUCOSE,POINT OF CARE 131 MG/DL (70-110)
[2025-07-20] MEDS: INSULIN LISPRO 100 UNITS/ML SQ PRN (17:25)
[2025-07-20 20:18] VITALS: BP 122/77; PULSE 100; RESP 18; TEMP 97.5; O2SAT 98
[2025-07-20 20:26] LABS: GLUCOMETER DEV NAME(LOC) BV3N.2; GLUCOSE,POINT OF CARE 130 MG/DL (70-110)
[2025-07-21 06:30] LABS: GLUCOMETER DEV NAME(LOC) BV3N.2; GLUCOSE,POINT OF CARE 142 MG/DL (70-110)
[2025-07-21 08:28] VITALS: BP 126/72; PULSE 93; RESP 16; TEMP 98.2; O2SAT 99
[2025-07-21 12:25] LABS: GLUCOMETER DEV NAME(LOC) BV3N.2; GLUCOSE,POINT OF CARE 126 MG/DL (70-110)
[2025-07-21] MEDS: ONDANSETRON 4 MG TABLET PO PRN (12:45)
[2025-07-21 16:21] LABS: GLUCOMETER DEV NAME(LOC) BV3N.2; GLUCOSE,POINT OF CARE 135 MG/DL (70-110)
[2025-07-21] MEDS ORDERED: LORazepam 2 MG/ML VIAL ONE (18:35)
[2025-07-21] MEDS: LORazepam 2 MG/ML VIAL IM ONE (19:26)
[2025-07-21 20:30] VITALS: BP 114/76; PULSE 119; RESP 17; TEMP 97.2; O2SAT 100
[2025-07-21 21:15] LABS: GLUCOMETER DEV NAME(LOC) BV3N.2; GLUCOSE,POINT OF CARE 111 MG/DL (70-110)
[2025-07-22] MEDS: IBUPROFEN 600 MG TABLET PO PRN (05:57)
[2025-07-22 05:58] VITALS: BP 133/90; PULSE 116; RESP 18; TEMP 97.5; O2SAT 99
[2025-07-22 06:00] LABS: GLUCOMETER DEV NAME(LOC) BV3N.2; GLUCOSE,POINT OF CARE 126 MG/DL (70-110)
[2025-07-22 06:57] VITALS: RESP 17
[2025-07-22 10:00] VITALS: BP 102/89; PULSE 101; RESP 16; TEMP 97.2
[2025-07-22 11:30] LABS: GLUCOMETER DEV NAME(LOC) BV3N.2; GLUCOSE,POINT OF CARE 116 MG/DL (70-110)
[2025-07-22 16:45] LABS: GLUCOMETER DEV NAME(LOC) BV3N.2; GLUCOSE,POINT OF CARE 138 MG/DL (70-110)
[2025-07-22] MEDS: PALIPERIDONE PALMITATE 234 MG/1.5 ML SYRINGE IM SCH (17:42)
[2025-07-22 20:41] LABS: GLUCOMETER DEV NAME(LOC) BV3N.2; GLUCOSE,POINT OF CARE 121 MG/DL (70-110)
[2025-07-22 21:04] VITALS: RESP 16
[2025-07-23 06:35] LABS: GLUCOMETER DEV NAME(LOC) BV3N.2; GLUCOSE,POINT OF CARE 108 MG/DL (70-110)
[2025-07-23 08:53] VITALS: RESP 18
[2025-07-23 10:53] VITALS: RESP 18
[2025-07-23 11:53] VITALS: RESP 18
[2025-07-23 12:26] LABS: GLUCOMETER DEV NAME(LOC) BV3N.2; GLUCOSE,POINT OF CARE 133 MG/DL (70-110)
[2025-07-23 16:55] LABS: GLUCOMETER DEV NAME(LOC) BV3N.2; GLUCOSE,POINT OF CARE 137 MG/DL (70-110)
[2025-07-23 17:54] VITALS: RESP 18
[2025-07-23 18:50] VITALS: RESP 18
[2025-07-23 20:45] LABS: GLUCOMETER DEV NAME(LOC) BV3N.2; GLUCOSE,POINT OF CARE 146 MG/DL (70-110)
[2025-07-24 06:26] LABS: GLUCOMETER DEV NAME(LOC) BV3N.2; GLUCOSE,POINT OF CARE 144 MG/DL (70-110)
[2025-07-24 08:30] VITALS: BP 122/66; PULSE 83; RESP 16; TEMP 98; O2SAT 98
[2025-07-24 09:25] LABS: APPEARANCE,URINE CLEAR (CLEAR); GLUCOSE, URINE (UA) NEGATIVE (NEGATIVE); LEUKOCYTE ESTERASE ,URINE NEGATIVE (NEGATIVE); NITRATE,URINE NEGATIVE (NEGATIVE); OCCULT BLOOD,URINE NEGATIVE (NEGATIVE); PH,URINE DRUG SCREEN 7.5 (5.0-8.0); SPECIFIC GRAVITIY, URINE 1.014 (1.003-1.030)
[2025-07-24 09:42] LABS: ALCOHOL, URINE DRUG SCREEN NEGATIVE (NEGATIVE); AMPHET/METH SCREEN,URINE NEGATIVE (NEGATIVE); BARBITURATE SCREEN, URINE NEGATIVE (NEGATIVE); CANNABINOID SCREEN,URINE POSITIVE (NEGATIVE); COCAINE SCREEN,URINE NEGATIVE (NEGATIVE); METHADONE SCREEN, URINE NEGATIVE (NEGATIVE)
[2025-07-24 11:21] LABS: GLUCOMETER DEV NAME(LOC) BV3N.2; GLUCOSE,POINT OF CARE 208 MG/DL (70-110)
[2025-07-24 17:05] LABS: GLUCOMETER DEV NAME(LOC) BV3N.2; GLUCOSE,POINT OF CARE 154 MG/DL (70-110)
[2025-07-24 20:40] VITALS: BP 120/77; PULSE 71; RESP 18; TEMP 97.8; O2SAT 98
[2025-07-25 06:56] LABS: GLUCOMETER DEV NAME(LOC) BV3N.2; GLUCOSE,POINT OF CARE 145 MG/DL (70-110)
[2025-07-25 08:43] VITALS: BP 131/66; PULSE 100; RESP 18; TEMP 97.1; O2SAT 98
[2025-07-25 11:21] LABS: GLUCOMETER DEV NAME(LOC) BV3N.2; GLUCOSE,POINT OF CARE 152 MG/DL (70-110)
[2025-07-25 17:00] LABS: GLUCOMETER DEV NAME(LOC) BV3N.2; GLUCOSE,POINT OF CARE 174 MG/DL (70-110)
[2025-07-25 23:09] VITALS: RESP 18
[2025-07-26 06:36] LABS: GLUCOMETER DEV NAME(LOC) BV3N.2; GLUCOSE,POINT OF CARE 118 MG/DL (70-110)
[2025-07-26 08:33] VITALS: BP 119/82; PULSE 100; RESP 18; TEMP 97.9; O2SAT 98
[2025-07-26 08:43] VITALS: RESP 18
[2025-07-26 09:43] VITALS: RESP 18
[2025-07-26 12:06] LABS: GLUCOMETER DEV NAME(LOC) BV3N.2; GLUCOSE,POINT OF CARE 149 MG/DL (70-110)
[2025-07-26] MEDS ORDERED: RISPC50 IM (15:21)
[2025-07-26 16:56] LABS: GLUCOMETER DEV NAME(LOC) BV3N.2; GLUCOSE,POINT OF CARE 136 MG/DL (70-110)
== END 2025-07-26 18:15 | disposition home or self-care (01) | DRG 885 ==
LOC: EMS 04:04 → B3A 11:50
PROVIDERS: ADMIT Psychiatry & Neurology Psychiatry; ATTEND Psychiatry & Neurology Psychiatry
DX: F20.9 Schizophrenia, unspecified (principal); E11.65 Type 2 diabetes mellitus with hyperglycemia; E66.9 Obesity, unspecified; G47.00 Insomnia, unspecified; M54.50 Low back pain, unspecified; F10.90 Alcohol use, unspecified, uncomplicated; Y90.9 Presence of alcohol in blood, level not specified; E55.9 Vitamin D deficiency, unspecified; B18.2 Chronic viral hepatitis C; Z68.35 Body mass index [BMI] 35.0-35.9, adult; Z79.4 Long term (current) use of insulin; Z82.49 Family history of ischemic heart disease and other diseases of the circulatory system; Z72.0 Tobacco use; D72.829 Elevated white blood cell count, unspecified
CPT/HCPCS: 80048; 80061; 80307; 81003; 82962; 83036; 84703; 85025; 96372; 99285; G0480; J1200; J1630; J2060; Q0162

== ENCOUNTER 2025-08-13 00:55 | Inpatient (IN) | payer MEDICARE, OTHER ==
[2025-08-13] VITALS (23 sets, daily range): BP systolic 101–131; BP diastolic 50–77; PULSE 100–116; RESP 14–21; TEMP 97.6–98.4; O2SAT 97–99
[~2025-08-13] VITALS: Ht 172.7 cm; Wt 98.0 kg
[~2025-08-13 00:55] MED LIST changes: -RISP3TAB77 PO; +RISPC50 IM; -TRAZ-252 PO
[2025-08-13 01:26] LABS: COVID AG,FIA SOURCE NASAL SWAB
[2025-08-13] MEDS ORDERED: LORazepam 2 MG/ML VIAL ONE (01:26)
[2025-08-13 01:33] LABS: APPEARANCE,URINE CLEAR (CLEAR); GLUCOSE, URINE (UA) NEGATIVE (NEGATIVE); LEUKOCYTE ESTERASE ,URINE NEGATIVE (NEGATIVE); NITRATE,URINE NEGATIVE (NEGATIVE); OCCULT BLOOD,URINE NEGATIVE (NEGATIVE); PH,URINE DRUG SCREEN 7.0 (5.0-8.0); SPECIFIC GRAVITIY, URINE 1.004 (1.003-1.030)
[2025-08-13 01:37] LABS: SARS-COV2 (COVID) ANTIGEN,FIA Negative (Negative)
[2025-08-13] MEDS: LORazepam 2 MG/ML VIAL IM ONE (01:37)
[2025-08-13 01:40] LABS: ALCOHOL, URINE DRUG SCREEN NEGATIVE (NEGATIVE); AMPHET/METH SCREEN,URINE NEGATIVE (NEGATIVE); BARBITURATE SCREEN, URINE NEGATIVE (NEGATIVE); CANNABINOID SCREEN,URINE POSITIVE (NEGATIVE); COCAINE SCREEN,URINE NEGATIVE (NEGATIVE); METHADONE SCREEN, URINE NEGATIVE (NEGATIVE)
[2025-08-13 01:45] LABS: PLATELET COUNT (AUTO) 465 K/uL (150-450); RED BLOOD CELL COUNT(AUTO) 2.20 MIL/uL (4.00-5.20); RED CELL DISTRIBUTION WIDTH 18.1 % (11.5-14.5); WHITE BLOOD COUNT (AUTO) 9.3 K/uL (4.5-11.0)
[2025-08-13 01:50] LABS: CALCIUM, TOTAL 9.3 mg/dL (8.8-10.5); CREATININE 0.59 mg/dL (0.60-1.30); GLOMERULAR FILTR. RATE CALC > 60 mL/min (>60); GLUCOSE,RANDOM 187 mg/dL (70-110); SODIUM SERUM 138 mmol/L (136-145); UREA NITROGEN, BLOOD 5 mg/dL (7-18)
[2025-08-13 01:53] LABS: RBC MORPHOLOGY COMMENT ABNORMAL RBC MORPH
[2025-08-13] MEDS: ACETAMINOPHEN 1000 MG/ISO-OSM 100 ML IV ONE (02:36)
[2025-08-13] MEDS: PANTOPRAZOLE SODIUM 40 MG/VIAL IVP ONE (02:36)
[2025-08-13 03:27] LABS: ASPARTATE AMINOTRANSFERASE 8.0 U/L (15-37); TOTAL PROTEIN, SERUM 6.6 g/dL (6.4-8.2)
[2025-08-13] MEDS: MELATONIN 5 MG TABLET PO ONE (03:56)
[2025-08-13] MEDS: LORazepam 2 MG/ML VIAL IVP ONE (03:56)
[2025-08-13] MEDS: ZOLPIDEM TARTRATE 10 MG TABLET PO ONE (03:57)
[2025-08-13 10:50] LABS: PLATELET COUNT (AUTO) 432 K/uL (150-450); RED BLOOD CELL COUNT(AUTO) 2.74 MIL/uL (4.00-5.20); RED CELL DISTRIBUTION WIDTH 24.6 % (11.5-14.5); WHITE BLOOD COUNT (AUTO) 7.9 K/uL (4.5-11.0)
[2025-08-13 10:53] LABS: CALCIUM, TOTAL 8.4 mg/dL (8.8-10.5); CREATININE 0.51 mg/dL (0.60-1.30); GLOMERULAR FILTR. RATE CALC > 60 mL/min (>60); GLUCOSE,RANDOM 123 mg/dL (70-110); SODIUM SERUM 140 mmol/L (136-145); UREA NITROGEN, BLOOD 4 mg/dL (7-18)
[2025-08-13] MEDS ORDERED: SODIUM CHLORIDE 0.9% 1,000 ML ONE (12:25)
[2025-08-13] MEDS: PEG 3350/NA SULF,BICARB,CL/KCL 4000 ML SOLUTION PO ONE (15:00)
[2025-08-13] MEDS ORDERED: MAGNESIUM HYDROXIDE SUSPENSION 30 ML UDCUP PO PRN (15:15)
[2025-08-13] MEDS ORDERED: BISACODYL 10 MG RECTAL RECTAL SUPPOSITORY PR PRN (15:15)
[2025-08-13] MEDS ORDERED: IPRATROPIUM BROMIDE 0.5 MG/2.5 ML NEB SOLUTION NEB PRN (15:15)
[2025-08-13] MEDS ORDERED: MORPHINE SULFATE 2 MG/ML SYRINGE IVP PRN (15:15)
[2025-08-13] MEDS ORDERED: ALBUTEROL SULFATE 2.5 MG/0.5 ML NEB SOLUTION NEB PRN (15:15)
[2025-08-13] MEDS ORDERED: SODIUM CHLORIDE 0.9% 500 ML IV ONE (16:54)
[2025-08-13] MEDS: PANTOPRAZOLE SODIUM 80 MG in SODIUM CHLORIDE 0.9% 100 ML IV SCH (16:59)
[2025-08-13] MEDS: HYDROCODONE/ACETAMINOPHEN 5-325 MG TABLET PO PRN (16:59)
[2025-08-13] MEDS: ZOLPIDEM TARTRATE 5 MG TABLET PO PRN (21:27)
[2025-08-13] MEDS: MORPHINE SULFATE 4 MG/ML VIAL IVP PRN (22:40)
[2025-08-14] MEDS: ACETAMINOPHEN 325 MG TABLET PO PRN (04:22)
[2025-08-14 05:25] VITALS: BP 113/65; PULSE 110; RESP 18; TEMP 98.2; O2SAT 99
[2025-08-14 06:38] LABS: PLATELET COUNT (AUTO) 438 K/uL (150-450); RED BLOOD CELL COUNT(AUTO) 3.10 MIL/uL (4.00-5.20); RED CELL DISTRIBUTION WIDTH 25.1 % (11.5-14.5); WHITE BLOOD COUNT (AUTO) 8.4 K/uL (4.5-11.0)
[2025-08-14 06:47] LABS: CALCIUM, TOTAL 8.2 mg/dL (8.8-10.5); CREATININE 0.52 mg/dL (0.60-1.30); GLOMERULAR FILTR. RATE CALC > 60 mL/min (>60); GLUCOSE,RANDOM 126 mg/dL (70-110); SODIUM SERUM 140 mmol/L (136-145); UREA NITROGEN, BLOOD 4 mg/dL (7-18)
[2025-08-14 08:00] VITALS: BP 134/81; PULSE 112; RESP 19; TEMP 97.7; O2SAT 98
[2025-08-14 08:21] LABS: GLUCOMETER DEV NAME(LOC) 5S.2D; GLUCOSE,POINT OF CARE 136 MG/DL (70-110)
[2025-08-14 11:41] LABS: GLUCOMETER DEV NAME(LOC) 5S.1D; GLUCOSE,POINT OF CARE 150 MG/DL (70-110)
[2025-08-14 12:00] VITALS: BP 122/90; PULSE 117; RESP 20; TEMP 97.3; O2SAT 99
[2025-08-14 16:00] VITALS: BP 125/78; PULSE 109; RESP 20; TEMP 98.6; O2SAT 100
[2025-08-14] MEDS: LORazepam 2 MG/ML VIAL IM ONE (18:45)
[2025-08-14 22:27] VITALS: BP 105/56; PULSE 103; RESP 18; TEMP 98.6; O2SAT 98
[2025-08-14] MEDS: BENZTROPINE MESYLATE 2 MG TABLET PO SCH (22:29)
[2025-08-15 01:16] VITALS: BP 124/71; PULSE 102; RESP 18; TEMP 97.9; O2SAT 98
[2025-08-15 07:29] LABS: PLATELET COUNT (AUTO) 409 K/uL (150-450); RED BLOOD CELL COUNT(AUTO) 3.29 MIL/uL (4.00-5.20); RED CELL DISTRIBUTION WIDTH 26.0 % (11.5-14.5); WHITE BLOOD COUNT (AUTO) 7.9 K/uL (4.5-11.0)
[2025-08-15 07:50] LABS: RBC MORPHOLOGY COMMENT ABNORMAL RBC MORPH
[2025-08-15 08:14] VITALS: BP 115/65; PULSE 115; RESP 19; TEMP 98.6; O2SAT 98
[2025-08-15] MEDS: LORazepam 2 MG/ML VIAL IM ONE ×2 (09:06→16:57)
[2025-08-15 11:39] VITALS: BP 110/67; PULSE 114; RESP 18; TEMP 98.2; O2SAT 97
[2025-08-15] MEDS: ONDANSETRON HCL 4 MG/2 ML VIAL IVP PRN (15:17)
[2025-08-15 15:33] VITALS: BP 134/73; PULSE 116; RESP 19; TEMP 97.5; O2SAT 97
[2025-08-15 19:24] VITALS: BP 112/67; PULSE 108; RESP 19; TEMP 99; O2SAT 98
== END 2025-08-15 23:10 | DRG 379 ==
LOC: EMS 00:58 → EDH 06:44 → 5S 11:30
PROVIDERS: ADMIT Hospitalist; ATTEND Hospitalist
PROC: 30233N1 Transfusion of Nonautologous Red Blood Cells into Peripheral Vein, Percutaneous Approach (ICD-10-PCS; principal; 2025-08-13)
DX: K92.2 Gastrointestinal hemorrhage, unspecified (principal); D50.0 Iron deficiency anemia secondary to blood loss (chronic); E11.9 Type 2 diabetes mellitus without complications; Z20.822 Contact with and (suspected) exposure to COVID-19; E66.9 Obesity, unspecified; E87.6 Hypokalemia; F15.10 Other stimulant abuse, uncomplicated; K75.9 Inflammatory liver disease, unspecified; F17.210 Nicotine dependence, cigarettes, uncomplicated; F32.A Depression, unspecified; F20.9 Schizophrenia, unspecified; Z68.32 Body mass index [BMI] 32.0-32.9, adult
CPT/HCPCS: 74176; 80048; 80076; 80307; 81003; 82962; 84703; 85014; 85018; 85025; 86850; 86900; 86901; 86923; G0378; G0480; J0131; J1200; J1630; J2060; J2270; J2405; J2470; J7030; J7040; J7050; P9016

== ENCOUNTER 2025-08-15 20:59 | Inpatient (IN) | payer MEDICARE, MEDICAID ==
[~2025-08-15] VITALS: Ht 172.7 cm; Wt 95.3 kg
[2025-08-16] MEDS: ZOLPIDEM TARTRATE 10 MG TABLET PO PRN (00:20)
[2025-08-16 03:59] VITALS: BP 104/90; PULSE 115; RESP 18; TEMP 99.1
[2025-08-16 04:05] VITALS: BP 104/90; PULSE 115; RESP 18; TEMP 99.1
[2025-08-16] MEDS ORDERED: MAG HYDROX/ALUMINUM HYD/SIMETH ES 30 ML SUSPENSION UDCUP PO PRN (08:15)
[2025-08-16] MEDS ORDERED: OMEPRAZOLE 20 MG CAPSULE PO PRN (08:15)
[2025-08-16] MEDS ORDERED: GLUCAGON,HUMAN RECOMBINANT 1 MG VIAL IM PRN (08:15)
[2025-08-16] MEDS ORDERED: DOCUSATE SODIUM 100 MG CAPSULE PO PRN (08:15)
[2025-08-16] MEDS ORDERED: MAGNESIUM HYDROXIDE SUSPENSION 30 ML UDCUP PO PRN (08:15)
[2025-08-16] MEDS ORDERED: LOPERAMIDE HCL 2 MG CAPSULE PO PRN (08:15)
[2025-08-16] MEDS ORDERED: ALBUTEROL SULFATE HFA 90 MCG/PUFF 8 GM INHALER IH PRN (08:15)
[2025-08-16] MEDS ORDERED: BACITRACIN 28 GM OINTMENT TP PRN (08:15)
[2025-08-16] MEDS: CHOLECALCIFEROL (VIT D3) 1,000 UNITS [25 MCG] TABLET PO SCH (09:00)
[2025-08-16] MEDS: MULTIVITAMINS WITH MINERALS, THERAPEUTIC TABLET PO SCH (09:00)
[2025-08-16 10:15] VITALS: RESP 16
[2025-08-16] MEDS: RisperiDONE MICROSPHERES 50 MG/2 ML SYRINGE IM ONE (16:08)
[2025-08-16 16:11] LABS: GLUCOMETER DEV NAME(LOC) BV2X.3; GLUCOSE,POINT OF CARE 168 MG/DL (70-110)
[2025-08-16] MEDS: FERROUS SULFATE 325 MG EC TABLET PO SCH (16:33)
[2025-08-16] MEDS: INSULIN LISPRO 100 UNITS/ML SQ PRN (16:50)
[2025-08-16 20:00] VITALS: RESP 18
[2025-08-17 06:36] LABS: GLUCOMETER DEV NAME(LOC) BV2X.3; GLUCOSE,POINT OF CARE 136 MG/DL (70-110)
[2025-08-17 09:59] LABS: APPEARANCE,URINE TURBID (CLEAR); GLUCOSE, URINE (UA) NEGATIVE (NEGATIVE); LEUKOCYTE ESTERASE ,URINE SMALL (NEGATIVE); NITRATE,URINE NEGATIVE (NEGATIVE); OCCULT BLOOD,URINE NEGATIVE (NEGATIVE); PH,URINE DRUG SCREEN 6.0 (5.0-8.0); SPECIFIC GRAVITIY, URINE 1.020 (1.003-1.030)
[2025-08-17 10:03] LABS: HCG,QUAL URINE NEGATIVE (NEGATIVE)
[2025-08-17 10:06] LABS: ALCOHOL, URINE DRUG SCREEN NEGATIVE (NEGATIVE); AMPHET/METH SCREEN,URINE NEGATIVE (NEGATIVE); BARBITURATE SCREEN, URINE NEGATIVE (NEGATIVE); CANNABINOID SCREEN,URINE POSITIVE (NEGATIVE); COCAINE SCREEN,URINE NEGATIVE (NEGATIVE); METHADONE SCREEN, URINE NEGATIVE (NEGATIVE)
[2025-08-17 10:14] LABS: SQUAMOUS EPITHELIAL CELL,UR Many /LPF (None Seen)
[2025-08-17 10:15] LABS: AMORPHOUS SEDIMENT,UR Many /LPF (None Seen)
[2025-08-17 12:10] LABS: GLUCOMETER DEV NAME(LOC) BV2X.3; GLUCOSE,POINT OF CARE 204 MG/DL (70-110)
[2025-08-17 17:01] LABS: GLUCOMETER DEV NAME(LOC) BV2X.3; GLUCOSE,POINT OF CARE 238 MG/DL (70-110)
[2025-08-17 20:04] VITALS: BP 134/87; PULSE 112; RESP 18; TEMP 98.4; O2SAT 98
[2025-08-17 21:00] LABS: GLUCOMETER DEV NAME(LOC) BV2X.3; GLUCOSE,POINT OF CARE 153 MG/DL (70-110)
[2025-08-18 07:00] LABS: GLUCOMETER DEV NAME(LOC) BV2X.3; GLUCOSE,POINT OF CARE 142 MG/DL (70-110)
[2025-08-18 08:13] VITALS: BP 116/74; PULSE 92; RESP 17; TEMP 98; O2SAT 100
[2025-08-18 11:26] LABS: GLUCOMETER DEV NAME(LOC) BV2X.3; GLUCOSE,POINT OF CARE 220 MG/DL (70-110)
[2025-08-18 16:16] LABS: GLUCOMETER DEV NAME(LOC) BV2X.3; GLUCOSE,POINT OF CARE 153 MG/DL (70-110)
[2025-08-18 21:40] VITALS: BP 126/74; PULSE 96; RESP 18; TEMP 98.1; O2SAT 97
[2025-08-19 06:16] LABS: GLUCOMETER DEV NAME(LOC) BV2X.3; GLUCOSE,POINT OF CARE 105 MG/DL (70-110)
[2025-08-19 08:18] VITALS: BP 115/76; PULSE 89; RESP 18; TEMP 98.3; O2SAT 98
[2025-08-19 09:19] LABS: PLATELET COUNT (AUTO) 366 K/uL (150-450); RED BLOOD CELL COUNT(AUTO) 3.53 MIL/uL (4.00-5.20); RED CELL DISTRIBUTION WIDTH 26.8 % (11.5-14.5); WHITE BLOOD COUNT (AUTO) 7.9 K/uL (4.5-11.0)
[2025-08-19 09:57] LABS: ASPARTATE AMINOTRANSFERASE 12 U/L (15-37); CALCIUM, TOTAL 8.8 mg/dL (8.8-10.5); CHOL/HDL RATIO 5.4 (3.9-5.7); CREATININE 0.51 mg/dL (0.60-1.30); GLOMERULAR FILTR. RATE CALC > 60 mL/min (>60); GLUCOSE,RANDOM 102 mg/dL (70-110); LDL CHOL (CALC.) 82 mg/dL (0-130); SODIUM SERUM 139 mmol/L (136-145); TOTAL PROTEIN, SERUM 6.5 g/dL (6.4-8.2); UREA NITROGEN, BLOOD 7 mg/dL (7-18)
[2025-08-19] MEDS: PETROLATUM,WHITE 28 GM JELLY TP PRN (14:23)
[2025-08-19 16:25] LABS: GLUCOMETER DEV NAME(LOC) BV2X.3; GLUCOSE,POINT OF CARE 140 MG/DL (70-110)
[2025-08-19 20:08] VITALS: BP 122/70; PULSE 103; RESP 19; TEMP 97.8; O2SAT 98
[2025-08-20 06:21] LABS: GLUCOMETER DEV NAME(LOC) BV2X.3; GLUCOSE,POINT OF CARE 111 MG/DL (70-110)
[2025-08-20 08:27] VITALS: BP 104/68; PULSE 77; RESP 18; TEMP 98.1; O2SAT 100
[2025-08-20 16:31] LABS: GLUCOMETER DEV NAME(LOC) BV2X.3; GLUCOSE,POINT OF CARE 175 MG/DL (70-110)
[2025-08-20 20:10] VITALS: BP 130/89; PULSE 112; RESP 18; TEMP 98.2; O2SAT 98
[2025-08-21 06:51] LABS: GLUCOMETER DEV NAME(LOC) BV2X.3; GLUCOSE,POINT OF CARE 121 MG/DL (70-110)
[2025-08-21 08:05] VITALS: BP 121/86; PULSE 99; RESP 18; TEMP 97.6; O2SAT 96
[2025-08-21 11:58] VITALS: BP 131/92; PULSE 102; RESP 16; TEMP 98.5; O2SAT 99
[2025-08-21] MEDS: ACETAMINOPHEN 325 MG TABLET PO PRN (11:58)
[2025-08-21 13:05] VITALS: RESP 18
[2025-08-21 17:11] LABS: GLUCOMETER DEV NAME(LOC) BV2X.3; GLUCOSE,POINT OF CARE 158 MG/DL (70-110)
[2025-08-21 18:38] VITALS: BP 126/66; PULSE 112; RESP 16; TEMP 99; O2SAT 99
[2025-08-21] MEDS: IBUPROFEN 600 MG TABLET PO PRN (18:38)
[2025-08-21 21:21] VITALS: BP 124/82; PULSE 74; RESP 16; TEMP 98.7; O2SAT 99
[2025-08-21 21:53] VITALS: BP 126/66; PULSE 113; RESP 20; TEMP 97.6; O2SAT 99
[2025-08-22 07:01] LABS: GLUCOMETER DEV NAME(LOC) BV2X.3; GLUCOSE,POINT OF CARE 123 MG/DL (70-110)
[2025-08-22 08:12] VITALS: RESP 18
[2025-08-22 12:21] LABS: GLUCOMETER DEV NAME(LOC) BV2X.3; GLUCOSE,POINT OF CARE 148 MG/DL (70-110)
[2025-08-22 18:11] LABS: GLUCOMETER DEV NAME(LOC) BV2X.3; GLUCOSE,POINT OF CARE 141 MG/DL (70-110)
[2025-08-22 20:05] VITALS: BP 133/78; PULSE 94; RESP 18; TEMP 98.1; O2SAT 99
[2025-08-23 06:05] LABS: GLUCOMETER DEV NAME(LOC) BV2X.3; GLUCOSE,POINT OF CARE 111 MG/DL (70-110)
[2025-08-23 08:07] VITALS: RESP 17
[2025-08-23 16:25] LABS: GLUCOMETER DEV NAME(LOC) BV2X.3; GLUCOSE,POINT OF CARE 126 MG/DL (70-110)
[2025-08-23] MEDS: NICOTINE POLACRILEX 2 MG LOZENGE PO PRN (16:25)
[2025-08-23 20:04] VITALS: BP 123/81; PULSE 94; RESP 18; TEMP 98.3; O2SAT 98
[2025-08-24 00:25] VITALS: BP 108/70; PULSE 119; RESP 18; O2SAT 100
[2025-08-24 06:40] LABS: GLUCOMETER DEV NAME(LOC) BV2X.3; GLUCOSE,POINT OF CARE 103 MG/DL (70-110)
[2025-08-24 08:08] VITALS: BP 143/93; PULSE 89; RESP 17; TEMP 98.2; O2SAT 100
[2025-08-24] MEDS ORDERED: LORazepam 2 MG/ML VIAL ONE (10:00)
[2025-08-24] MEDS: LORazepam 2 MG/ML VIAL IM ONE (10:24)
[2025-08-24 16:25] LABS: GLUCOMETER DEV NAME(LOC) BV2X.3; GLUCOSE,POINT OF CARE 158 MG/DL (70-110)
[2025-08-24 20:12] VITALS: BP 137/81; PULSE 87; RESP 18; TEMP 98.2; O2SAT 98
[2025-08-25 05:56] LABS: GLUCOMETER DEV NAME(LOC) BV2X.3; GLUCOSE,POINT OF CARE 106 MG/DL (70-110)
[2025-08-25 08:17] VITALS: BP 112/64; PULSE 97; RESP 19; TEMP 96.8; O2SAT 98
[2025-08-25] MEDS: ONDANSETRON 4 MG TABLET PO PRN (12:31)
[2025-08-25 16:26] LABS: GLUCOMETER DEV NAME(LOC) BV2X.3; GLUCOSE,POINT OF CARE 155 MG/DL (70-110)
[2025-08-25 20:53] VITALS: BP 123/79; PULSE 103; RESP 16; TEMP 98.8; O2SAT 99
[2025-08-26 06:01] LABS: GLUCOMETER DEV NAME(LOC) BV2X.3; GLUCOSE,POINT OF CARE 93 MG/DL (70-110)
[2025-08-26 09:09] VITALS: BP 106/77; PULSE 102; RESP 16; TEMP 98.2; O2SAT 99
[2025-08-26 16:56] LABS: GLUCOMETER DEV NAME(LOC) BV2X.3; GLUCOSE,POINT OF CARE 140 MG/DL (70-110)
[2025-08-26 20:00] VITALS: BP 128/91; PULSE 115; RESP 18; TEMP 98.1; O2SAT 98
[2025-08-26 20:19] VITALS: BP 133/82; PULSE 73; RESP 18; TEMP 97.9; O2SAT 100
[2025-08-27 06:31] LABS: GLUCOMETER DEV NAME(LOC) BV2X.3; GLUCOSE,POINT OF CARE 136 MG/DL (70-110)
[2025-08-27 08:48] VITALS: BP 108/59; PULSE 92; RESP 18; TEMP 98.2; O2SAT 98
[2025-08-27] MEDS: BENZOCAINE/MENTHOL [CEPACOL] LOZENGE PO PRN (09:03)
[2025-08-27 10:05] VITALS: RESP 18
[2025-08-27 16:51] LABS: GLUCOMETER DEV NAME(LOC) BV2X.3; GLUCOSE,POINT OF CARE 162 MG/DL (70-110)
[2025-08-27 20:42] VITALS: BP 131/84; PULSE 98; RESP 18; TEMP 97.9; O2SAT 98
[2025-08-28 06:16] LABS: GLUCOMETER DEV NAME(LOC) BV2X.3; GLUCOSE,POINT OF CARE 127 MG/DL (70-110)
[2025-08-28 08:35] VITALS: BP 134/78; PULSE 92; RESP 18; TEMP 97.9; O2SAT 97
[2025-08-28 17:21] LABS: GLUCOMETER DEV NAME(LOC) BV2S.; GLUCOSE,POINT OF CARE 130 MG/DL (70-110)
[2025-08-28 20:00] VITALS: BP 114/82; PULSE 95; RESP 18; TEMP 98.6; O2SAT 100
[2025-08-29 06:20] LABS: GLUCOMETER DEV NAME(LOC) BV2X.3; GLUCOSE,POINT OF CARE 131 MG/DL (70-110)
[2025-08-29 10:54] VITALS: BP 130/87; PULSE 89; RESP 17; TEMP 98.2; O2SAT 98
[2025-08-29] MEDS ORDERED: HALO5TAB23 PO (13:51)
[2025-08-29] MEDS ORDERED: TRAZ-252 PO (13:51)
[2025-08-29 16:30] LABS: GLUCOMETER DEV NAME(LOC) BV2X.3; GLUCOSE,POINT OF CARE 106 MG/DL (70-110)
[2025-08-29 20:13] VITALS: BP 113/79; PULSE 108; RESP 18; TEMP 98; O2SAT 100
[2025-08-30 05:50] LABS: GLUCOMETER DEV NAME(LOC) BV2X.3; GLUCOSE,POINT OF CARE 109 MG/DL (70-110)
[2025-08-30 06:39] VITALS: BP 122/82; PULSE 88; RESP 18; O2SAT 99
[2025-08-30 08:05] VITALS: BP 124/84; PULSE 102; RESP 18; TEMP 97.8; O2SAT 98
[2025-08-30] MEDS: RisperiDONE MICROSPHERES 50 MG/2 ML SYRINGE IM SCH (08:31)
[2025-08-30 08:34] VITALS: BP 124/84; RESP 16; TEMP 97.5; O2SAT 98
== END 2025-08-30 13:16 | disposition home or self-care (01) | DRG 885 ==
LOC: B2X 23:32 → UNDOADMIN 23:32 → B2X 23:39 → B3A 08-20 20:44 → B2X 08-20 21:41
PROVIDERS: ADMIT Psychiatry & Neurology Psychiatry; ATTEND Psychiatry & Neurology Psychiatry
DX: F20.9 Schizophrenia, unspecified (principal); E11.65 Type 2 diabetes mellitus with hyperglycemia; G47.00 Insomnia, unspecified; B18.2 Chronic viral hepatitis C; E55.9 Vitamin D deficiency, unspecified; E66.9 Obesity, unspecified; F10.90 Alcohol use, unspecified, uncomplicated; Y90.8 Blood alcohol level of 240 mg/100 ml or more; M54.50 Low back pain, unspecified; D64.9 Anemia, unspecified; Z68.31 Body mass index [BMI] 31.0-31.9, adult; Z72.0 Tobacco use; Z82.49 Family history of ischemic heart disease and other diseases of the circulatory system
CPT/HCPCS: 80053; 80061; 80307; 81001; 82962; 83036; 84443; 84703; 85025; J1200; J1630; J2060; J2794; Q0162

== ENCOUNTER 2025-09-29 16:10 | Emergency (ER) | payer MEDICARE, OTHER ==
[~2025-09-29] VITALS: Ht 170.2 cm; Wt 95.9 kg
[~2025-09-29 16:10] MED LIST changes: +HALO5TAB23 PO; +TRAZ-252 PO
[2025-09-29 16:15] VITALS: BP 110/67; PULSE 134; RESP 18; TEMP 98.4; O2SAT 98
[2025-09-29 16:52] LABS: PLATELET COUNT (AUTO) 331 K/uL (150-450); RED BLOOD CELL COUNT(AUTO) 4.76 MIL/uL (4.00-5.20); RED CELL DISTRIBUTION WIDTH 23.2 % (11.5-14.5); WHITE BLOOD COUNT (AUTO) 7.9 K/uL (4.5-11.0)
[2025-09-29 16:56] LABS: PH,URINE DRUG SCREEN 6.5 (5.0-8.0)
[2025-09-29 16:57] LABS: CALCIUM, TOTAL 8.0 mg/dL (8.8-10.5); CREATININE 0.57 mg/dL (0.60-1.30); GLOMERULAR FILTR. RATE CALC > 60 mL/min (>60); GLUCOSE,RANDOM 122 mg/dL (70-110); SODIUM SERUM 133 mmol/L (136-145); UREA NITROGEN, BLOOD 4 mg/dL (7-18)
[2025-09-29 17:01] LABS: ALCOHOL, URINE DRUG SCREEN NEGATIVE (NEGATIVE); AMPHET/METH SCREEN,URINE NEGATIVE (NEGATIVE); BARBITURATE SCREEN, URINE NEGATIVE (NEGATIVE); CANNABINOID SCREEN,URINE POSITIVE (NEGATIVE); COCAINE SCREEN,URINE NEGATIVE (NEGATIVE); METHADONE SCREEN, URINE NEGATIVE (NEGATIVE)
[2025-09-29 17:16] LABS: RBC MORPHOLOGY COMMENT ABNORMAL RBC MORPH
== END 2025-09-29 20:35 | disposition home or self-care (01) ==
LOC: EMS 16:13
DX: F20.9 Schizophrenia, unspecified (principal); F32.A Depression, unspecified; E11.9 Type 2 diabetes mellitus without complications; F17.210 Nicotine dependence, cigarettes, uncomplicated; F12.90 Cannabis use, unspecified, uncomplicated; F15.90 Other stimulant use, unspecified, uncomplicated; Z98.890 Other specified postprocedural states
CPT/HCPCS: 99284; 80048; 84703; 85025; 36415; 80307; G0480